=== PATIENT | female | born 1940 | race Caucasian/White ===

== ENCOUNTER 2017-04-11 15:09 | Inpatient (IN) | payer MEDICARE, BC ==
[2017-04-11] MEDS ORDERED: methylPREDNISolone SOD SUCCI 125 MG/2 ML VIAL IV STA (15:32)
[2017-04-11] MEDS ORDERED: IPRATROPIUM 0.5 MG/2.5 ML NEBU INHALATION STA (15:32)
[2017-04-11] MEDS ORDERED: ALBUTEROL NEBULIZED 2.5 MG/3 ML INHALATION STA (15:32)
--- NOTE | 2017-04-11 15:35 | ED ---
General Adult HPI - General Source: patient, RN notes reviewed Mode of arrival: wheelchair Limitations: no limitations <Noel Fabian - Last Filed: 04/11/17 16:42> <Gale Edmondson - Last Filed: 04/11/17 19:44> - General Chief complaint: Shortness of Breath Stated complaint: Diff Breathing Time Seen by Provider: 04/11/17 15:15 - History of Present Illness Initial comments: This is a 76-year-old female presents to the emergency department with past history of a heart attack and continues to smoke. Patient comes in today complaining that she's having difficulty breathing since this morning is getting progressively worse. Patient states she has a low-grade fever and has been coughing quite a bit. Patient states it is positive sputum production as well. Patient denies any palpitations. Patient denies any sore throat or ear pain. Patient denies headache patient denies numbness weakness. Patient denies lightheadedness dizziness or near syncopal episode. Patient denies abdominal pain patient denies any nausea vomiting diarrhea. Patient denies any erythema on the skin rashes or lesions. Patient denies any dysuria hematuria urinary frequency. (Noel Fabian) - Related Data Home Medications Medication Instructions Recorded Confirmed Aspirin [Adult Low Dose Aspirin EC] 81 mg PO DAILY 04/11/17 04/11/17 Calcium Carbonate 500 mg PO DAILY 04/11/17 04/11/17 Cholecalciferol [Vitamin D3] 800 unit PO DAILY 04/11/17 04/11/17 Citalopram Hydrobromide [CeleXA] 20 mg PO DAILY 04/11/17 04/11/17 Clopidogrel Bisulfate [Plavix] 75 mg PO DAILY 04/11/17 04/11/17 Furosemide [Lasix] 40 mg PO DAILY 04/11/17 04/11/17 HYDROcodone/APAP 5-325MG [[place] 1 tab PO DAILY PRN 04/11/17 04/11/17 5-325] Ibuprofen [Motrin] 800 mg PO DAILY PRN 04/11/17 04/11/17 Metoprolol Tartrate [Lopressor] 25 mg PO BID 04/11/17 04/11/17 Multivitamins, Thera [Multivitamin 1 tab PO DAILY 04/11/17 04/11/17 (formulary)] Omeprazole [PriLOSEC] 20 mg PO BID 04/11/17 04/11/17 Potassium Chloride [Klor-Con 10] 10 meq PO DAILY 04/11/17 04/11/17 Ranitidine HCl [Zantac] 150 mg PO DAILY 04/11/17 04/11/17 Rosuvastatin [Crestor] 10 mg PO DAILY 04/11/17 04/11/17 Allergies Allergy/AdvReac Type Severity Reaction Status Date / Time No Known Allergies Allergy Verified 04/11/17 16:08 Review of Systems ROS Other: All systems not noted in ROS Statement are negative. <Noel Fabian - Last Filed: 04/11/17 16:42> ROS Other: All systems not noted in ROS Statement are negative. <Gale Edmondson - Last Filed: 04/11/17 19:44> ROS Statement: Those systems with pertinent positive or pertinent negative responses have been documented in the HPI. Past Medical History Past Medical History: Cancer, Myocardial Infarction ([place]) Additional Past Medical History / Comment(s): mi october 2012 History of Any Multi-Drug Resistant Organisms: None Reported Past Surgical History: Breast Surgery, Joint Replacement Additional Past Surgical History / Comment(s): kim knee replacement hip replacement Past Psychological History: No Psychological Hx Reported Smoking Status: Current every day smoker Past Alcohol Use History: None Reported Past Drug Use History: None Reported <Noel Fabian - Last Filed: 04/11/17 16:42> General Exam Limitations: no limitations <Noel Fabian - Last Filed: 04/11/17 16:42> <Gale Edmondson - Last Filed: 04/11/17 19:44> - General Exam Comments Initial Comments: GENERAL: Patient is well-developed and well-nourished. Patient is nontoxic and well- hydrated and is in mild distress. ENT: Neck is soft and supple. No significant lymphadenopathy is noted. Oropharynx is clear. Moist mucous membranes. Neck has full range of motion without eliciting any pain. EYES: The sclera were anicteric and conjunctiva were pink and moist. Extraocular movements were intact and pupils were equal round and reactive to light. Eyelids were unremarkable. PULMONARY: Patient has diffuse wheezing diminished breath sounds CARDIOVASCULAR: There is a regular rate and rhythm without any murmurs gallops or rubs. ABDOMEN: Soft and nontender with normal bowel sounds. No palpable organomegaly was noted. There is no palpable pulsatile mass. SKIN: Skin is clear with no lesions or rashes and otherwise unremarkable. NEUROLOGIC: Patient is alert and oriented x3. Cranial nerves II through XII are grossly intact. Motor and sensory are also intact. Normal speech, volume and content. Symmetrical smile. MUSCULOSKELETAL: Normal extremities with adequate strength and full range of motion. LYMPHATICS: No significant lymphadenopathy is noted PSYCHIATRIC: Normal psychiatric evaluation. (Noel Fabian) Course <Noel Fabian - Last Filed: 04/11/17 16:42> <Gale Edmondson - Last Filed: 04/11/17 19:44> Vital Signs 04/11/17 04/11/17 04/11/17 15:16 15:45 16:06 Temperature 100.3 F H Pulse Rate 107 H 96 82 Respiratory 18 Rate Blood Pressure 155/74 O2 Sat by Pulse 91 L Oximetry 04/11/17 04/11/17 04/11/17 16:34 17:15 18:55 Temperature 100.8 F H Pulse Rate 91 88 Respiratory 16 16 Rate Blood Pressure 141/65 146/58 O2 Sat by Pulse 91 L 94 L Oximetry 04/11/17 19:23 Temperature Pulse Rate 85 Respiratory 18 Rate Blood Pressure 153/75 O2 Sat by Pulse 94 L Oximetry - Reevaluation(s) Reevaluation #1: 04/11/17 19:43 Labs and imaging were reviewed his CBC is unremarkable d-dimer is quite elevated troponin is unremarkable, compressive metabolic panel and urinalysis are negative CT chest to rule out any PE or confirmed congestive heart failure considering patient's coronary artery disease she be admitted to the hospital she will get Lasix 40 mg IV now and will consult cardiology (Gale Edmondson) Medical Decision Making - Lab Data Result diagrams: 04/11/17 15:20 04/11/17 15:20 <Noel Fabian - Last Filed: 04/11/17 16:42> - Lab Data Result diagrams: 04/11/17 15:20 04/11/17 15:20 <Gale Edmondson - Last Filed: 04/11/17 19:44> - Medical Decision Making EKG shows normal sinus rhythm at 83 bpm NM interval 298 QRSs 100 QT interval 370 QTC is 444. Patient's EKG shows no ST segment elevation or depression or T wave abnormalities are noted Dr. Edmondson will be taking over the care of this patient at 5 PM (Noel Fabian) - Lab Data Lab Results 04/11/17 04/11/17 04/11/17 Range/Units 15:20 15:20 15:20 WBC 5.5 (3.8-10.6) k/uL RBC 4.34 (3.80-5.40) m/uL Hgb 13.5 (11.4-16.0) gm/dL Hct 41.9 (34.0-46.0) % MCV 96.7 (80.0-100.0) fL MCH 31.1 (25.0-35.0) pg MCHC 32.1 (31.0-37.0) g/dL RDW 13.5 (11.5-15.5) % Plt Count 153 (150-450) k/uL Neutrophils % 75 % Lymphocytes % 14 % Monocytes % 6 % Eosinophils % 3 % Basophils % 1 % Neutrophils # 4.2 (1.3-7.7) k/uL Lymphocytes # 0.8 L (1.0-4.8) k/uL Monocytes # 0.3 (0-1.0) k/uL Eosinophils # 0.2 (0-0.7) k/uL Basophils # 0.1 (0-0.2) k/uL PT (9.0-12.0) sec INR (<1.2) APTT (22.0-30.0) sec D-Dimer (<0.60) mg/L FEU Sodium 139 (137-145) mmol/L Potassium 4.1 (3.5-5.1) mmol/L Chloride 106 (98-107) mmol/L Carbon Dioxide 21 L (22-30) mmol/L Anion Gap 12 mmol/L BUN 17 (7-17) mg/dL Creatinine 0.80 (0.52-1.04) mg/dL Est GFR (MDRD) Af Amer >60 (>60 ml/min/1.73 sqM) Est GFR (MDRD) Non-Af >60 (>60 ml/min/1.73 sqM) Glucose 179 H (74-99) mg/dL Plasma Lactic Acid Ernie (0.7-2.0) mmol/L Calcium 9.0 (8.4-10.2) mg/dL Magnesium 1.9 (1.6-2.3) mg/dL Total Bilirubin 0.4 (0.2-1.3) mg/dL AST 30 (14-36) U/L ALT 40 (9-52) U/L Alkaline Phosphatase 106 (38-126) U/L Total Creatine Kinase 85 (30-135) U/L CK-MB (CK-2) 1.5 (0.0-2.4) ng/mL CK-MB (CK-2) Rel Index 1.8 Troponin I <0.012 (0.000-0.034) ng/mL NT-Pro-B Natriuret Pep pg/mL Total Protein 7.1 (6.3-8.2) g/dL Albumin 4.0 (3.5-5.0) g/dL Urine Color Urine Appearance (Clear) Urine pH (5.0-8.0) Ur Specific [place] (1.001-1.035) Urine Protein (Negative) Urine Glucose (UA) (Negative) Urine Ketones (Negative) Urine Blood (Negative) Urine Nitrite (Negative) Urine Bilirubin (Negative) Urine Urobilinogen (<2.0) mg/dL Ur Leukocyte Esterase (Negative) 04/11/17 04/11/17 04/11/17 Range/Units 15:20 15:20 15:20 WBC (3.8-10.6) k/uL RBC (3.80-5.40) m/uL Hgb (11.4-16.0) gm/dL Hct (34.0-46.0) % MCV (80.0-100.0) fL MCH (25.0-35.0) pg MCHC (31.0-37.0) g/dL RDW (11.5-15.5) % Plt Count (150-450) k/uL Neutrophils % % Lymphocytes % % Monocytes % % Eosinophils % % Basophils % % Neutrophils # (1.3-7.7) k/uL Lymphocytes # (1.0-4.8) k/uL Monocytes # (0-1.0) k/uL Eosinophils # (0-0.7) k/uL Basophils # (0-0.2) k/uL PT 10.5 (9.0-12.0) sec INR 1.0 (<1.2) APTT 22.4 (22.0-30.0) sec D-Dimer 0.66 H (<0.60) mg/L FEU Sodium (137-145) mmol/L Potassium (3.5-5.1) mmol/L Chloride (98-107) mmol/L Carbon Dioxide (22-30) mmol/L Anion Gap mmol/L BUN (7-17) mg/dL Creatinine (0.52-1.04) mg/dL Est GFR (MDRD) Af Amer (>60 ml/min/1.73 sqM) Est GFR (MDRD) Non-Af (>60 ml/min/1.73 sqM) Glucose (74-99) mg/dL Plasma Lactic Acid Ernie 1.5 (0.7-2.0) mmol/L Calcium (8.4-10.2) mg/dL Magnesium (1.6-2.3) mg/dL Total Bilirubin (0.2-1.3) mg/dL AST (14-36) U/L ALT (9-52) U/L Alkaline Phosphatase (38-126) U/L Total Creatine Kinase (30-135) U/L CK-MB (CK-2) (0.0-2.4) ng/mL CK-MB (CK-2) Rel Index Troponin I (0.000-0.034) ng/mL NT-Pro-B Natriuret Pep 3200 pg/mL Total Protein (6.3-8.2) g/dL Albumin (3.5-5.0) g/dL Urine Color Urine Appearance (Clear) Urine pH (5.0-8.0) Ur Specific [place] (1.001-1.035) Urine Protein (Negative) Urine Glucose (UA) (Negative) Urine Ketones (Negative) Urine Blood (Negative) Urine Nitrite (Negative) Urine Bilirubin (Negative) Urine Urobilinogen (<2.0) mg/dL Ur Leukocyte Esterase (Negative) 04/11/17 Range/Units 18:00 WBC (3.8-10.6) k/uL RBC (3.80-5.40) m/uL Hgb (11.4-16.0) gm/dL Hct (34.0-46.0) % MCV (80.0-100.0) fL MCH (25.0-35.0) pg MCHC (31.0-37.0) g/dL RDW (11.5-15.5) % Plt Count (150-450) k/uL Neutrophils % % Lymphocytes % % Monocytes % % Eosinophils % % Basophils % % Neutrophils # (1.3-7.7) k/uL Lymphocytes # (1.0-4.8) k/uL Monocytes # (0-1.0) k/uL Eosinophils # (0-0.7) k/uL Basophils # (0-0.2) k/uL PT (9.0-12.0) sec INR (<1.2) APTT (22.0-30.0) sec D-Dimer (<0.60) mg/L FEU Sodium (137-145) mmol/L Potassium (3.5-5.1) mmol/L Chloride (98-107) mmol/L Carbon Dioxide (22-30) mmol/L Anion Gap mmol/L BUN (7-17) mg/dL Creatinine (0.52-1.04) mg/dL Est GFR (MDRD) Af Amer (>60 ml/min/1.73 sqM) Est GFR (MDRD) Non-Af (>60 ml/min/1.73 sqM) Glucose (74-99) mg/dL Plasma Lactic Acid Ernie (0.7-2.0) mmol/L Calcium (8.4-10.2) mg/dL Magnesium (1.6-2.3) mg/dL Total Bilirubin (0.2-1.3) mg/dL AST (14-36) U/L ALT (9-52) U/L Alkaline Phosphatase (38-126) U/L Total Creatine Kinase (30-135) U/L CK-MB (CK-2) (0.0-2.4) ng/mL CK-MB (CK-2) Rel Index Troponin I (0.000-0.034) ng/mL NT-Pro-B Natriuret Pep pg/mL Total Protein (6.3-8.2) g/dL Albumin (3.5-5.0) g/dL Urine Color Light Yellow Urine Appearance Clear (Clear) Urine pH 5.0 (5.0-8.0) Ur Specific [place] 1.008 (1.001-1.035) Urine Protein Trace H (Negative) Urine Glucose (UA) Negative (Negative) Urine Ketones Negative (Negative) Urine Blood Negative (Negative) Urine Nitrite Negative (Negative) Urine Bilirubin Negative (Negative) Urine Urobilinogen <2.0 (<2.0) mg/dL Ur Leukocyte Esterase Negative (Negative) Disposition <Noel Fabian - Last Filed: 04/11/17 16:42> <Gale Edmondson - Last Filed: 04/11/17 19:44> Clinical Impression: Congestive heart failure Disposition: ADMITTED IP TO THIS HOSP Condition: Good Referrals: Ramírez Galeas MD [Primary Care Provider] - 1-2 days
[2017-04-11] MEDS ORDERED: ACETAMINOPHEN TAB 500 MG TAB PO STA (15:36)
[2017-04-11] MEDS ORDERED: IBUPROFEN 600 MG TAB PO STA (15:36)
[2017-04-11 15:48] LABS: Basophils # (A) 0.1 k/uL (0-0.2); Basophils % (A) 1 %; CHCM 32.3; Eosinophils # (A) 0.2 k/uL (0-0.7); Eosinophils % (A) 3 %; HCT 41.9 % (34.0-46.0); HDW 2.44; HGB 13.5 gm/dL (11.4-16.0); Luc # (Auto) 0.11; Luc % (Auto) 2; Lymphocytes # (A) 0.8 k/uL (1.0-4.8); Lymphocytes % (A) 14 %; MCH 31.1 pg (25.0-35.0); MCHC 32.1 g/dL (31.0-37.0); MCV 96.7 fL (80.0-100.0); Mean Platelet Volume 9.7; Monocytes # (A) 0.3 k/uL (0-1.0); Monocytes % (A) 6 %; Neutrophils # (A) 4.2 k/uL (1.3-7.7); Neutrophils % (A) 75 %; RBC 4.34 m/uL (3.80-5.40); RDW 13.5 % (11.5-15.5); WBC 5.5 k/uL (3.8-10.6); WBC (Perox) 5.98
[2017-04-11 16:02] LABS: ALT 40 U/L (9-52); AST 30 U/L (14-36); Alkaline Phosphatase 106 U/L (38-126); Anion Gap 12 mmol/L; Blood Urea Nitrogen 17 mg/dL (7-17); Carbon Dioxide 21 mmol/L (22-30); Chloride 106 mmol/L (98-107); Glucose 179 mg/dL (74-99); Magnesium 1.9 mg/dL (1.6-2.3); Non-African American GFR(MDRD) >60 (>60 ml/min/1.73 sqM); Potassium 4.1 mmol/L (3.5-5.1); Sodium 139 mmol/L (137-145); Total Bilirubin 0.4 mg/dL (0.2-1.3); Total Protein 7.1 g/dL (6.3-8.2)
[2017-04-11 16:03] LABS: Partial Thromboplastin Time 22.4 sec (22.0-30.0)
[2017-04-11 16:06] LABS: Prothrombin Time 10.5 sec (9.0-12.0)
[2017-04-11 16:13] LABS: Creatine Kinase 85 U/L (30-135)
[2017-04-11 16:26] LABS: Creatine Kinase MB 1.5 ng/mL (0.0-2.4); Troponin I <0.012 ng/mL (0.000-0.034)
[2017-04-11] MEDS ORDERED: RX INFO: IV CONTRAST WAS GIVEN 1 EACH MISC MISCELLANE PRN (16:42)
[2017-04-11 18:13] LABS: Appearance,Urine Clear (Clear); Bilirubin,Urine Negative (Negative); Glucose,Urine (UA) Negative (Negative); Ketones,Urine Negative (Negative); Leukocyte Esterase,Urine Negative (Negative); Nitrite,Urine Negative (Negative); Protein,Urine Trace (Negative); Specific Gravity,Urine 1.008 (1.001-1.035); UA Billing (MACRO vs. MICRO) CHEM; Urobilinogen,Urine <2.0 mg/dL (<2.0)
--- NOTE | 2017-04-11 19:26 | CT ---
EXAMINATION TYPE: CT chest angio for PE DATE OF EXAM: 04/11/2017 COMPARISON: NONE HISTORY: Patient complains of difficulty breathing. CT DLP: 552 mGycm. Automated Exposure Control for Dose Reduction was Utilized. CONTRAST: CTA scan of the thorax is performed with IV Contrast, patient injected with 100 mL of Omnipaque 350, pulmonary embolism protocol. MIP Images are created on CT scanner and reviewed. FINDINGS: LUNGS: The lungs are grossly clear, there is no concerning parenchymal mass or nodule identified. M inimal left basilar subsegmental atelectasis is seen. There is mild pulmonary vascular prominence. Ma in pulmonary artery and aorta are not enlarged. There is no pleural effusion or pneumothorax seen. T he tracheobronchial tree is patent. 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 Multiple enlarged m ediastinal lymph nodes measure up to 1.3 cm in the pretracheal space. Three-vessel moderate coronary artery calcifications are identified. There is satisfactory enhancement of the pulmonary artery and i ts branches, there is no CT evidence for pulmonary embolism. There are no greater than 1 cm hilar or mediastinal lymph nodes. No cardiomegaly or pericardial effusion is seen. OTHER: Right breast implant is noted. No discrete axillary adenopathy. Heart is mildly enlarged. Mode rate degenerative changes of the thoracic spine are noted.. IMPRESSION: 1. No evidence of acute pulmonary embolus. 2. Mild pulmonary vascular congestion and cardiac enlargement which may relate to mild underlying dec ompensated congestive heart failure. 3. No focal opacity although minimal bibasilar subsegmental atelectasis is noted. 3. Few mildly enlarged mediastinal lymph nodes that may be reactive.
[2017-04-11] MEDS ORDERED: FUROSEMIDE 10 MG/ML 4 ML VIAL IV STA (19:39)
[2017-04-11] MEDS ORDERED: NITROGLYCERIN SL TABS 0.4 MG TAB SUBLINGUAL PRN (19:44)
[2017-04-11] MEDS ORDERED: IBUPROFEN 800 MG TAB PO PRN (19:47)
[2017-04-11 21:53] LABS: Creatine Kinase 83 U/L (30-135)
[2017-04-11 22:06] LABS: Creatine Kinase MB 1.6 ng/mL (0.0-2.4); Troponin I <0.012 ng/mL (0.000-0.034)
[2017-04-11] MEDS: METOPROLOL TARTRATE 25 MG TAB PO SCH (22:59)
[2017-04-11] MEDS: PANTOPRAZOLE 40 MG TABLET PO SCH (22:59)
[2017-04-11 23:18] VITALS: BMI 31.4
[2017-04-12 03:59] LABS: Cholesterol 149 mg/dL (<200); HDL Cholesterol 59 mg/dL (40-60)
[2017-04-12 04:08] LABS: Creatine Kinase 74 U/L (30-135)
[2017-04-12 04:21] LABS: Creatine Kinase MB 1.6 ng/mL (0.0-2.4); Troponin I <0.012 ng/mL (0.000-0.034)
[2017-04-12] MEDS: PANTOPRAZOLE 40 MG TABLET PO SCH (09:00)
[2017-04-12] MEDS: ASPIRIN 81 MG PO SCH (09:00)
[2017-04-12] MEDS: CITALOPRAM HYDROBROMIDE 20 MG TAB PO SCH (09:02)
[2017-04-12] MEDS: CALCIUM CARBONATE 500 MG CHEWABLE PO SCH (09:02)
[2017-04-12] MEDS: ATORVASTATIN 20 MG TAB PO SCH (09:02)
[2017-04-12] MEDS: FAMOTIDINE 20 MG TAB PO SCH (09:03)
[2017-04-12] MEDS: METOPROLOL TARTRATE 25 MG TAB PO SCH ×2 (09:03→21:23)
[2017-04-12] MEDS: FUROSEMIDE 40 MG TAB PO SCH (09:03)
[2017-04-12] MEDS: POTASSIUM CHLORIDE ER 10 MEQ TAB.ER.PRT PO SCH (09:03)
[2017-04-12] MEDS: MULTIVITAMINS, THERA 1 EACH TAB PO SCH (09:04)
[2017-04-12] MEDS: CHOLECALCIFEROL 400 UNIT TAB PO SCH (09:04)
[2017-04-12] MEDS: CLOPIDOGREL 75 MG TAB PO SCH (10:04)
--- NOTE | 2017-04-12 10:56 | XR ---
EXAMINATION TYPE: XR chest 1V portable DATE OF EXAM: 04/12/2017 COMPARISON: NONE HISTORY: Shortness of breath TECHNIQUE: Single frontal view of the chest is obtained. FINDINGS: Heart size is prominent. There is ectasia of the aorta hypertrophic and degenerative [place] es spine. Arthropathy shoulders. No sizable pleural effusion or consolidation. Density overlying the anterior margin first rib may be related to first rib. Recent CT scan suggests no evidence of nodule. IMPRESSION: 1. No acute process.
--- NOTE | 2017-04-12 11:22 | P.CRDCN ---
History of Present Illness Consult date: 04/12/17 History of present illness: This is a 76-year-old female. 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 Her current cardiac medications include plavix 75 mg daily, crestor 10 mg daily, lopressor 25 mg BID, aspirin 81 mg daily, lasix 40 mg daily and potassium 10 MEQ daily. She presented to the hospital with increasing shortness of breath, cough and fever. We have been asked to see this patient in consultation to evaluate for heart failure. At the time of my exam she denies chest pain, dizziness, palpitations, orthopnea, pedal edema or nausea/vomiting. She last saw her director operating room last week and states there were no changes made and she isn't scheduled to go back for another year. EKG reveals sinus mechanism with nonspecific T-wave abnormalities. D-dimer 0.66, troponin negative x3, pro-BNP 3200, BUN 17, Cr 0.8, CTA negative for PE with pulmonary vascular congestion and cardiac enlargement. Chest x-ray negative. Blood pressure 146/66 with a heart rate of 68. She is currently saturating 90% on room air, 2 L nasal cannula have been applied. Review of Systems Extensive review of systems performed, negative except mentioned in HPI. Past Medical History Past Medical History: Cancer, Myocardial Infarction ([place]) Additional Past Medical History / Comment(s): mi october 2012 Last Myocardial Infarction Date:: 2012 History of Any Multi-Drug Resistant Organisms: None Reported Past Surgical History: Breast Surgery, Joint Replacement Additional Past Surgical History / Comment(s): kim knee replacement right hip replacement Heart cath with 2 stents. Past Anesthesia/Blood Transfusion Reactions: No Reported Reaction Past Psychological History: No Psychological Hx Reported Smoking Status: Current every day smoker Past Alcohol Use History: None Reported Past Drug Use History: None Reported - Past Family History Mother Additional Family Medical History / Comment(s): from natural causes per patient. Father Family Medical History: Cancer Medications and Allergies Home Medications Medication Instructions Recorded Confirmed Type Aspirin [Adult Low Dose Aspirin EC] 81 mg PO DAILY 04/11/17 04/11/17 History Calcium Carbonate 500 mg PO DAILY 04/11/17 04/11/17 History Cholecalciferol [Vitamin D3] 800 unit PO DAILY 04/11/17 04/11/17 History Citalopram Hydrobromide [CeleXA] 20 mg PO DAILY 04/11/17 04/11/17 History Clopidogrel Bisulfate [Plavix] 75 mg PO DAILY 04/11/17 04/11/17 History Furosemide [Lasix] 40 mg PO DAILY 04/11/17 04/11/17 History HYDROcodone/APAP 5-325MG [[place] 1 tab PO DAILY PRN 04/11/17 04/11/17 History 5-325] Ibuprofen [Motrin] 800 mg PO DAILY PRN 04/11/17 04/11/17 History Metoprolol Tartrate [Lopressor] 25 mg PO BID 04/11/17 04/11/17 History Multivitamins, Thera [Multivitamin 1 tab PO DAILY 04/11/17 04/11/17 History (formulary)] Omeprazole [PriLOSEC] 20 mg PO BID 04/11/17 04/11/17 History Potassium Chloride [Klor-Con 10] 10 meq PO DAILY 04/11/17 04/11/17 History Ranitidine HCl [Zantac] 150 mg PO DAILY 04/11/17 04/11/17 History Rosuvastatin [Crestor] 10 mg PO DAILY 04/11/17 04/11/17 History Allergies Allergy/AdvReac Type Severity Reaction Status Date / Time No Known Allergies Allergy Verified 04/11/17 16:08 Physical Exam Vitals: Vital Signs Temp Pulse Pulse Resp BP BP Pulse Ox 04/12/17 07:00 98.0 F 68 16 146/66 90 L 04/12/17 00:00 76 16 04/11/17 23:20 76 16 04/11/17 23:16 98.2 F 76 16 147/74 94 L 04/11/17 20:58 98.3 F 85 17 165/77 95 04/11/17 20:20 97.8 F 85 20 181/80 93 L 04/11/17 19:59 74 18 163/77 94 L 04/11/17 19:23 85 18 153/75 94 L 04/11/17 18:55 100.8 F H 88 16 146/58 94 L 04/11/17 17:15 16 141/65 91 L 04/11/17 16:34 91 04/11/17 16:06 82 10/01/17 15:45 96 04/11/17 15:16 100.3 F H 107 H 18 155/74 91 L Intake and Output 04/11/17 04/12/17 04/12/17 22:59 06:59 14:59 Intake Total 540 Balance 540 Intake: Oral 540 Other: Voiding Method Toilet # Voids 2 Weight 85.729 kg 85.729 kg GENERAL: This is a 76-year-old female in no apparent distress at the time of my examination. HEENT: Head is atraumatic, normocephalic. Pupils are equal, round. Sclerae anicteric. Conjunctivae are clear. Mucous membranes of the mouth are moist. Neck is supple. There is no jugular venous distention. No carotid bruit is heard. LUNGS: Wheezing on inspiration and expiration with poor air entry b/l throughout. Course lung sounds throughout. No crackles appreciated. No chest wall tenderness is noted on palpation or with deep breathing. HEART: Regular rate and rhythm without murmurs, rubs or gallops. S1 and S2 heard. ABDOMEN: Soft, nontender. Bowel sounds are heard. No organomegaly noted. EXTREMITIES: 2+ peripheral pulses with no evidence of peripheral edema and no calf tenderness noted. NEUROLOGIC: Patient is awake, alert and oriented x3. Results 04/13/17 07:35 04/13/17 07:35 Cardiac Enzymes 04/11/17 04/11/17 04/11/17 Range/Units 15:20 15:20 21:19 AST 30 (14-36) U/L CK-MB (CK-2) 1.5 1.6 (0.0-2.4) ng/mL Troponin I <0.012 <0.012 (0.000-0.034) ng/mL 04/12/17 Range/Units 03:16 AST (14-36) U/L CK-MB (CK-2) 1.6 (0.0-2.4) ng/mL Troponin I <0.012 (0.000-0.034) ng/mL Coagulation 04/11/17 Range/Units 15:20 PT 10.5 (9.0-12.0) sec APTT 22.4 (22.0-30.0) sec Lipids 04/12/17 Range/Units 03:16 Triglycerides 44 (<150) mg/dL Cholesterol 149 (<200) mg/dL HDL Cholesterol 59 (40-60) mg/dL CBC 04/11/17 Range/Units 15:20 WBC 5.5 (3.8-10.6) k/uL RBC 4.34 (3.80-5.40) m/uL Hgb 13.5 (11.4-16.0) gm/dL Hct 41.9 (34.0-46.0) % Plt Count 153 (150-450) k/uL Comprehensive Metabolic Panel 04/11/17 Range/Units 15:20 Sodium 139 (137-145) mmol/L Potassium 4.1 (3.5-5.1) mmol/L Chloride 106 (98-107) mmol/L Carbon Dioxide 21 L (22-30) mmol/L BUN 17 (7-17) mg/dL Creatinine 0.80 (0.52-1.04) mg/dL Glucose 179 H (74-99) mg/dL Calcium 9.0 (8.4-10.2) mg/dL AST 30 (14-36) U/L ALT 40 (9-52) U/L Alkaline Phosphatase 106 (38-126) U/L Total Protein 7.1 (6.3-8.2) g/dL Albumin 4.0 (3.5-5.0) g/dL Current Medications Generic Name Dose Route Start Last Admin Trade Name Freq PRN Reason Stop Dose Admin Hydrocodone Bitart/Acetaminophen 1 each 04/11/17 19:47 [place] 5-325 PO DAILY PRN Moderate Pain Aspirin 81 mg 04/12/17 09:00 04/12/17 09:00 Aspirin PO 81 mg DAILY RODRIGUEZ Administration Atorvastatin Calcium 20 mg 04/12/17 09:00 04/12/17 09:02 Lipitor PO 20 mg DAILY RODRIGUEZ Administration Calcium Carbonate/Glycine 500 mg 04/12/17 09:00 04/12/17 09:02 Tums PO 500 mg DAILY RODRIGUEZ Administration Cholecalciferol 800 unit 04/12/17 12:00 04/12/17 09:04 Vitamin D3 PO 800 unit DAILY@1200 RODRIGUEZ Administration Citalopram Hydrobromide 20 mg 04/12/17 09:00 04/12/17 09:02 Celexa PO 20 mg DAILY RODRIGUEZ Administration Clopidogrel Bisulfate 75 mg 04/12/17 09:00 04/12/17 10:04 Plavix PO 75 mg DAILY RODRIGUEZ Administration Famotidine 20 mg 04/12/17 09:00 04/12/17 09:03 Pepcid PO 20 mg DAILY RODRIGUEZ Administration Furosemide 40 mg 04/12/17 09:00 04/12/17 09:03 Lasix PO 40 mg DAILY RODRIGUEZ Administration Guaifenesin 600 mg 04/12/17 10:45 Mucinex PO Q12HR RODRIGUEZ Ibuprofen 800 mg 04/11/17 19:47 Motrin PO DAILY PRN Mild Pain Metoprolol Tartrate 25 mg 04/11/17 21:00 04/12/17 09:03 Lopressor PO 25 mg BID RODRIGUEZ Administration Miscellaneous Information 1 each 04/11/17 16:42 04/11/17 19:25 Rx Info: Iv Contrast Was Given MISCELLANE 04/13/17 16:42 1 each DAILY PRN Administration Per Protocol Multivitamins 1 each 04/12/17 12:00 04/12/17 09:04 Theragran PO 1 each DAILY@1200 RODRIGUEZ Administration Nitroglycerin 0.4 mg 04/11/17 19:44 Nitrostat SUBLINGUAL Q5M PRN Chest Pain Pantoprazole Sodium 40 mg 04/11/17 20:15 04/12/17 09:00 Protonix PO 40 mg [id number] RODRIGUEZ Administration Potassium Chloride 10 meq 04/12/17 09:00 04/12/17 09:03 K-Dur 10 PO 10 meq DAILY RODRIGUEZ Administration Intake and Output 04/11/17 04/12/17 04/12/17 22:59 06:59 14:59 Intake Total 540 Balance 540 Intake: Oral 540 Other: Voiding Method Toilet # Voids 2 Weight 85.729 kg 85.729 kg 04/11/17 15:20 04/11/17 15:20 Assessment and Plan Plan: ASSESSMENT 1. CAD with previous stenting 2. Essential hypertension, controlled 3. Dyslipidemia 4. COPD, acute on chronic exacerbation 5. Chronic tobacco abuse PLAN Mrs Leavitt received one dose of IV lasix in ED and is currently maintained on 40 mg PO. This should be continued as ordered. We will obtain 2D echo and doppler study to assess LV structure and function. Consider pulmonary consultation for acute exacerbation of COPD. Nurse Practitioner note has been reviewed, I agree with a documented findings and plan of care. Patient was seen and examined.
[2017-04-12] MEDS: guaiFENesin 600 MG TABLET.ER PO SCH ×2 (11:54→21:23)
[2017-04-12] MEDS ORDERED: TEMAZEPAM 15 MG CAP PO PRN (18:06)
[2017-04-12] MEDS ORDERED: ALPRAZolam 0.25 MG TAB PO PRN (18:06)
[2017-04-12] MEDS: HYDROcodone/APAP 5-325MG 1 EACH TAB PO PRN (18:42)
[2017-04-12] MEDS: NICOTINE 14MG/24HR PATCH TRANSDERM SCH (18:43)
[2017-04-12] MEDS: IPRATROPIUM-ALBUTEROL 3 ML NEB INHALATION SCH ×2 (19:26→19:28)
[2017-04-12] MEDS: BUDESONIDE 1 MG/2 ML NEBU INHALATION SCH (19:28)
[2017-04-12] MEDS: FORMOTEROL FUMARATE 20 MCG/2 ML NEBU INHALATION SCH (19:28)
[2017-04-12] MEDS: HEPARIN SODIUM,PORCINE 5,000 UNIT/ML 1 ML VIAL SQ SCH (21:23)
--- NOTE | 2017-04-12 21:23 | HP ---
HISTORY AND PHYSICAL DATE OF SERVICE: 04/12/2017 CHIEF COMPLAINT: Shortness of breath. HISTORY OF PRESENT ILLNESS: This 76-year-old woman with a past medical history of multiple medical problems, including history of myocardial infarction, history of DJD, history of nicotine dependence, being followed by Dr. Galeas in the outpatient setting, was complaining of shortness of breath. The shortness of breath is not related to exertion. Patient has fever and cough, also. A chest CT was done on admission which showed no evidence of pulmonary embolism, but vascular congestion and decompensated heart failure and mildly enlarged mediastinal lymph nodes also noted. Chest x-ray baseline was done which showed no acute process. There is no history of any fever, rigor or chills. No history of headache, loss of consciousness, seizures. PAST MEDICAL HISTORY: 1. History of myocardial infarction. 2. History of malignancy. 3. History of breast surgery. 4. History of joint replacement. MEDICATIONS: Medications prior to admission include: 1. Crestor 10 mg p.o. daily. 2. Motrin 800 mg daily p.r.n. 3. Lopressor 25 mg b.i.d. 4. Waldron 1 tablet b.i.d. p.r.n. 5. Aspirin 81 mg. 6. Prilosec 20 mg b.i.d. 7. Multivitamins 1 p.o. daily. 8. Calcium carbonate 500 mg p.o. daily. 9. Zantac 150 mg p.o. daily. 10.Klor-Con 10 mEq p.o. daily. 11.Vitamin D3 800 units p.o. daily. 12.Lasix 40 mg p.o. daily. 13.Plavix 75 mg p.o. daily. 14.Celexa 20 mg p.o. daily. ALLERGIES: NONE. FAMILY HISTORY: History of cancer in the family. SOCIAL HISTORY: Continue ongoing nicotine dependence. No history of alcohol intake. REVIEW OF SYSTEMS: ENT: No diminished hearing. No diminished vision. CARDIOVASCULAR SYSTEM: As mentioned earlier. RESPIRATORY SYSTEM: As mentioned earlier. GI: No nausea, vomiting. : No dysuria or retention. NERVOUS SYSTEM: No numbness, weakness. ALLERGY/IMMUNOLOGY: No asthma, hayfever. MUSCULOSKELETAL: As mentioned earlier. HEMATOLOGY/ONCOLOGY: No history of anemia. ENDOCRINE: As mentioned earlier. CONSTITUTIONAL: As mentioned earlier. DERMATOLOGY: Negative. RHEUMATOLOGY: Negative. PSYCHIATRY: As mentioned earlier. PHYSICAL EXAMINATION: Alert and oriented x3. The pulse is 68, blood pressure 146/66, respiration 16, temperature 98 degrees, pulse ox 98% on 2 L. HEENT: Conjunctivae normal. Oral mucosa moist. NECK: No jugular venous distention. No carotid bruit. No lymph node enlargement. CARDIOVASCULAR SYSTEM: S1, S2 muffled. No S3. No S4. RESPIRATORY SYSTEM: Breath sounds diminished at the bases. A few scattered rhonchi and crackles. Expiratory wheezing also present. Breathing efforts are markedly increased. ABDOMEN: Soft, nontender. No mass palpable. LEGS: No edema. No swelling. NERVOUS SYSTEM: No focal deficit.. LABS: CBC within normal limits. INR is 1. CO2 is 21. UA noted. Chest x-ray which was personally reviewed by me showed some increased bronchovascular markings as well as evidence of CHF. Other labs are noted. ASSESSMENT: 1. Shortness of breath; possible chronic obstructive pulmonary disease, acute exacerbation, with acute purulent tracheobronchitis. 2. History of myocardial infarction. 3. History of degenerative joint disease. 4. History of nicotine dependence, continued ongoing. RECOMMENDATION AND DISCUSSION: In this 76-year-old woman who presented with multiple complex medical issues, we will monitor the patient closely, continue the current medications, continue symptomatic treatment. I would recommend broad-spectrum IV antibiotics and optimize the bronchodilator treatment. Pulmonary consultation, cardiology consultation are appreciated. Guarded prognosis. Further recommendations to follow. MMMARIA DOLORESL / HENRYN: [id number] /
[2017-04-13] MEDS: BUDESONIDE 1 MG/2 ML NEBU INHALATION SCH ×2 (07:32→20:03)
[2017-04-13] MEDS: FORMOTEROL FUMARATE 20 MCG/2 ML NEBU INHALATION SCH ×2 (07:32→20:03)
[2017-04-13] MEDS: IPRATROPIUM-ALBUTEROL 3 ML NEB INHALATION SCH ×4 (07:33→20:03)
[2017-04-13 07:52] LABS: Basophils # (A) 0.1 k/uL (0-0.2); Basophils % (A) 1 %; CH 29.8; CHCM 31.4; Eosinophils # (A) 0.3 k/uL (0-0.7); Eosinophils % (A) 4 %; HCT 42.5 % (34.0-46.0); HDW 2.42; HGB 13.5 gm/dL (11.4-16.0); Luc # (Auto) 0.19; Luc % (Auto) 2; Lymphocytes # (A) 1.8 k/uL (1.0-4.8); Lymphocytes % (A) 22 %; MCH 30.3 pg (25.0-35.0); MCHC 31.8 g/dL (31.0-37.0); MCV 95.4 fL (80.0-100.0); Mean Platelet Volume 9.4; Monocytes # (A) 0.5 k/uL (0-1.0); Monocytes % (A) 6 %; Neutrophils # (A) 5.2 k/uL (1.3-7.7); Neutrophils % (A) 65 %; RBC 4.46 m/uL (3.80-5.40); RDW 12.8 % (11.5-15.5); WBC 7.9 k/uL (3.8-10.6); WBC (Perox) 8.32
[2017-04-13 08:17] LABS: Anion Gap 7 mmol/L; Blood Urea Nitrogen 27 mg/dL (7-17); Calcium 8.9 mg/dL (8.4-10.2); Carbon Dioxide 30 mmol/L (22-30); Chloride 104 mmol/L (98-107); Glucose 92 mg/dL (74-99); Non-African American GFR(MDRD) 52 (>60 ml/min/1.73 sqM); Potassium 4.2 mmol/L (3.5-5.1); Sodium 141 mmol/L (137-145)
[2017-04-13] MEDS: NICOTINE 14MG/24HR PATCH TRANSDERM SCH (08:30)
[2017-04-13] MEDS: CALCIUM CARBONATE 500 MG CHEWABLE PO SCH (08:31)
[2017-04-13] MEDS: POTASSIUM CHLORIDE ER 10 MEQ TAB.ER.PRT PO SCH (08:31)
[2017-04-13] MEDS: FUROSEMIDE 40 MG TAB PO SCH (08:31)
[2017-04-13] MEDS: METOPROLOL TARTRATE 25 MG TAB PO SCH ×2 (08:31→21:12)
[2017-04-13] MEDS: FAMOTIDINE 20 MG TAB PO SCH (08:32)
[2017-04-13] MEDS: CLOPIDOGREL 75 MG TAB PO SCH (08:32)
[2017-04-13] MEDS: CITALOPRAM HYDROBROMIDE 20 MG TAB PO SCH (08:32)
[2017-04-13] MEDS: ASPIRIN 81 MG PO SCH (08:32)
[2017-04-13] MEDS: ATORVASTATIN 20 MG TAB PO SCH (08:32)
[2017-04-13] MEDS: PANTOPRAZOLE 40 MG TABLET PO SCH (08:32)
[2017-04-13] MEDS: HEPARIN SODIUM,PORCINE 5,000 UNIT/ML 1 ML VIAL SQ SCH ×2 (08:33→21:12)
[2017-04-13] MEDS: guaiFENesin 600 MG TABLET.ER PO SCH ×2 (08:33→21:11)
--- NOTE | 2017-04-13 11:13 | P.CNPUL ---
History of Present Illness Consult date: 04/13/17 Requesting physician: Betty Miller Reason for consult: dyspnea Chief complaint: Shortness of breath, cough, congestion History of present illness: This is a very pleasant 76-year-old female patient who follows with Dr. Galeas as her primary care physician. She has a history of right breast cancer, myocardial infarction with previous stent placement in 2014, hyperlipidemia, degenerative joint disease with multiple orthopedic surgeries. She has has chronic and ongoing tobacco dependence of approximately 60 years. She has not been seen by a acrobatic dancer in the past. She is not on any rescue her maintenance inhalers in the outpatient setting. Not oxygen nor steroid dependent. She presented to the emergency room on 04/11/2017 with complaints of increasing shortness of breath, cough and congestion. She does have a productive cough of white sputum. She did have a T-max of 100.8. No leukocytosis. Chest x-ray showed no acute pulmonary process. A d-dimer was 0.[address] angiogram was performed which revealed no evidence of pulmonary embolism. There was some mild pulmonary vascular congestion with cardiac enlargement. Troponins were negative 3. ProBNP 3200. Echocardiogram is pending. Review of Systems Constitutional: Reports fever, Reports weakness Eyes: denies blurred vision, denies bulging eye, denies decreased vision Ears: deny: decreased hearing Ears, nose, mouth and throat: Denies headache, Denies sore throat Cardiovascular: Reports dyspnea on exertion, Reports leg edema, Reports orthopnea, Reports shortness of breath Respiratory: Reports congestion, Reports cough with sputum, Reports wheezing Gastrointestinal: Denies abdominal pain, Denies diarrhea, Denies nausea, Denies vomiting Genitourinary: Denies dysuria, Denies hematuria Musculoskeletal: absent: knee pain, knee stiffness, knee swelling Integumentary: Reports as per HPI Neurological: Reports as per HPI Psychiatric: Reports as per HPI Endocrine: Reports as per HPI Hematologic/Lymphatic: Reports as per HPI Allergic/Immunologic: Reports as per HPI Past Medical History Past Medical History: Cancer, Myocardial Infarction ([place]) Additional Past Medical History / Comment(s): mi october 2012 Last Myocardial Infarction Date:: 2012 History of Any Multi-Drug Resistant Organisms: None Reported Past Surgical History: Breast Surgery, Joint Replacement Additional Past Surgical History / Comment(s): kim knee replacement right hip replacement Heart cath with 2 stents. Past Anesthesia/Blood Transfusion Reactions: No Reported Reaction Past Psychological History: No Psychological Hx Reported Smoking Status: Current every day smoker Past Alcohol Use History: None Reported Past Drug Use History: None Reported - Past Family History Mother Additional Family Medical History / Comment(s): from natural causes per patient. Father Family Medical History: Cancer Medications and Allergies Home Medications Medication Instructions Recorded Confirmed Type Aspirin [Adult Low Dose Aspirin EC] 81 mg PO DAILY 04/11/17 04/11/17 History Calcium Carbonate 500 mg PO DAILY 04/11/17 04/11/17 History Cholecalciferol [Vitamin D3] 800 unit PO DAILY 04/11/17 04/11/17 History Citalopram Hydrobromide [CeleXA] 20 mg PO DAILY 04/11/17 04/11/17 History Clopidogrel Bisulfate [Plavix] 75 mg PO DAILY 04/11/17 04/11/17 History Furosemide [Lasix] 40 mg PO DAILY 04/11/17 04/11/17 History HYDROcodone/APAP 5-325MG [Bouton 1 tab PO DAILY PRN 04/11/17 04/11/17 History 5-325] Ibuprofen [Motrin] 800 mg PO DAILY PRN 04/11/17 04/11/17 History Metoprolol Tartrate [Lopressor] 25 mg PO BID 04/11/17 04/11/17 History Multivitamins, Thera [Multivitamin 1 tab PO DAILY 04/11/17 04/11/17 History (formulary)] Omeprazole [PriLOSEC] 20 mg PO BID 04/11/17 04/11/17 History Potassium Chloride [Klor-Con 10] 10 meq PO DAILY 04/11/17 04/11/17 History Ranitidine HCl [Zantac] 150 mg PO DAILY 04/11/17 04/11/17 History Rosuvastatin [Crestor] 10 mg PO DAILY 04/11/17 04/11/17 History Allergies Allergy/AdvReac Type Severity Reaction Status Date / Time No Known Allergies Allergy Verified 04/11/17 16:08 Physical Exam Vitals: Vital Signs Temp Pulse Pulse Resp BP Pulse Ox 04/13/17 08:00 20 04/13/17 07:49 82 04/13/17 07:42 79 04/13/17 07:34 79 95 04/13/17 07:00 97.6 F 71 20 157/76 90 L 04/12/17 21:51 98.7 F 87 18 132/64 92 L 04/12/17 19:45 76 04/12/17 19:35 74 04/12/17 19:28 70 04/12/17 15:22 68 16 04/12/17 15:00 98.4 F 73 28 H 170/83 95 Intake and Output 04/12/17 04/13/17 04/13/17 22:59 06:59 14:59 Other: Voiding Method Toilet Toilet # Voids 1 1 Weight 85.729 kg GENERAL EXAM: Alert, active, comfortable in no apparent distress. HEAD: Normocephalic. EYES: Normal reaction of pupils, equal size. NOSE: Clear with pink turbinates. THROAT: No erythema or exudates. NECK: No masses, no JVD. CHEST: No chest wall deformity. LUNGS: Equal air entry with faint crackles in the posterior bases. Bilateral end expiratory wheeze. Diminished. CVS: S1 and S2 normal with no audible murmurs, regular rhythm. ABDOMEN: No hepatosplenomegaly, normal bowel sounds, no guarding or rigidity. SPINE: No scoliosis or deformity SKIN: No rashes CENTRAL NERVOUS SYSTEM: No focal deficits, tone is normal in all 4 extremities. Extremities: There is trace peripheral edema. No clubbing, no cyanosis. Peripheral pulses are intact. Results - Laboratory Findings CBC and BMP: 04/13/17 07:35 04/13/17 07:35 PT/INR, D-dimer PT 10.5 sec (9.0-12.0) 04/11/17 15:20 INR 1.0 (<1.2) 04/11/17 15:20 D-Dimer 0.66 mg/L FEU (<0.60) H 04/11/17 15:20 Abnormal lab findings: Abnormal Labs 04/11/17 04/11/17 04/11/17 15:20 15:20 15:20 Lymphocytes # 0.8 L D-Dimer 0.66 H Carbon Dioxide 21 L BUN Glucose 179 H Urine Protein 04/11/17 04/13/17 18:00 07:35 Lymphocytes # D-Dimer Carbon Dioxide BUN 27 H Glucose Urine Protein Trace H - Diagnostic Findings Chest x-ray: image reviewed CT scan - chest: image reviewed Assessment and Plan Plan: Impression: #1 Acute exacerbation of suspected systolic congestive heart failure. #2 Acute exacerbation of chronic obstructive pulmonary disease. #3 Acute hypoxic respiratory failure secondary to above. #4 History of coronary artery disease with previous stent placement. #5 Chronic and ongoing tobacco dependence. #6 Obesity. #7 Hypertension. #8 Hyperlipidemia. #9 History of anxiety/depression. #10 Gastroesophageal reflux disease. #11 Osteoarthritis with multiple orthopedic surgeries. Plan: The patient was seen and evaluated by Dr. Gutierrez. Her chest x-ray and CT scans were reviewed. The patient most likely has underlying chronic obstructive pulmonary disease. She is on DuoNeb inhalations 4 times a day, Pulmicort and Perforomist inhalations twice a day. We'll initiate a prednisone taper. She'd benefit from a full pulmonary workup in our office in the outpatient setting including full pulmonary function testing and to make recommendations for her maintenance medications. She is also educated regarding the importance of complete smoking cessation. A Habitrol patch has been applied. Cardiology is on the case. Echocardiogram is pending. She remains on diuretics. She is on subcutaneous heparin for DVT prophylaxis and Protonix for GI prophylaxis. We will increase her activity as tolerated. We'll continue to follow and make further recommendations based on her clinical status. Time with Patient: Greater than 30
--- NOTE | 2017-04-13 11:32 | P.PN ---
Subjective This is a 76-year-old female. 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 Her current cardiac medications include plavix 75 mg daily, crestor 10 mg daily, lopressor 25 mg BID, aspirin 81 mg daily, lasix 40 mg daily and potassium 10 MEQ daily. She presented to the hospital with increasing shortness of breath, cough and fever. We have been asked to see this patient in consultation to evaluate for heart failure. At the time of my exam she denies chest pain, dizziness, palpitations, orthopnea, pedal edema or nausea/vomiting. She last saw her plastics fabricator or welder last week and states there were no changes made and she isn't scheduled to go back for another year. EKG reveals sinus mechanism with nonspecific T-wave abnormalities. D-dimer 0.66, troponin negative x3, pro-BNP 3200, BUN 17, Cr 0.8, CTA negative for PE with pulmonary vascular congestion and cardiac enlargement. Chest x-ray negative. Upon exam today she is seen sitting in bed in no acute distress. She is on room air and denies chest pain, shortness of breath, dizziness, palpitations or nausea. She states her breathing is much improved from yesterday and she is able to cough and clear phlegm. Objective - Vital Signs Vital signs: Vital Signs Temp 97.6 F 04/13/17 07:00 Pulse 82 04/13/17 11:12 Resp 20 04/13/17 08:00 BP 157/76 04/13/17 07:00 Pulse Ox 95 04/13/17 07:34 Intake & Output 04/12/17 04/13/17 04/13/17 18:59 06:59 18:59 Intake Total 780 Balance 780 Weight 85.729 kg Intake: Oral 780 Other: Voiding Method Toilet Toilet # Voids 3 1 - Exam GENERAL: Well-appearing, well-nourished and in no acute distress. NECK: Supple without JVD or thyromegaly. LUNGS: B/L expiratory wheeze with diminished air entry. Respiration equal and unlabored. No rales or rhonchi. Much improved from previous exam. HEART: Regular rate and rhythm without murmurs, rubs or gallops. S1 and S2 heard. EXTREMITIES: Normal range of motion, no edema. No clubbing or cyanosis. Peripheral pulses intact and strong. - Labs CBC & Chem 7: 04/13/17 07:35 04/13/17 07:35 Labs: Abnormal Lab Results - Last 24 Hours (Table) 04/13/17 Range/Units 07:35 BUN 27 H (7-17) mg/dL Microbiology - Last 24 Hours (Table) 04/11/17 15:20 Blood Culture - Preliminary Blood No Growth after 24 hours Assessment and Plan Plan: ASSESSMENT 1. CAD with previous stenting 2. Essential hypertension, controlled 3. Dyslipidemia 4. COPD, acute on chronic exacerbation 5. Chronic tobacco abuse PLAN Smoking cessation discussed again at length. Mrs Leavitt can follow up with her primary plastics fabricator or welder upon discharge. Continue cardiac medications as previously ordered. Nurse Practitioner note has been reviewed, I agree with a documented findings and plan of care. Patient was seen and examined.
--- NOTE | 2017-04-13 11:55 | ECHOF ---
Referral Reason:shortness of breath MEASUREMENTS -------- HEIGHT: 165.1 cm WEIGHT: 85.7 kg BP: 146/66 RVIDd: 3.4 cm (< 3.3) IVSd: 1.1 cm (0.6 - 1.1) LVIDd: 5.6 cm (3.9 - 5.3) LVPWd: 1.0 cm (0.6 - 1.1) IVSs: 1.6 cm LVIDs: 3.9 cm LVPWs: 1.6 cm LAESV Index (A-L): 36.08 ml/m Ao Diam: 3.0 cm (2.0 - 3.7) AV Cusp: 1.8 cm (1.5 - 2.6) LA Diam: 4.3 cm (2.7 - 3.8) MV EXCURSION: 18.048 mm (> 18.000) MV EF SLOPE: 47 mm/s (70 - 150) EPSS: 1.2 cm MV E Dariel: 0.64 m/s MV DecT: 341 ms MV A Dariel: 1.06 m/s MV E/A Ratio: 0.60 RAP: 5.00 mmHg RVSP: 12.48 mmHg FINDINGS -------- Sinus rhythm. This was a technically adequate study. The left ventricular size is normal. There is borderline concentric left ventricular hypertrophy. Overall left ventricular systolic function is normal with, an EF between 55 - 60 %. The right ventricle is normal in size and function. Normal LA size by volume 22+/-6 ml/m2. The right atrium is normal in size. Aortic valve is trileaflet and is mildly thickened. Trace amount of aortic regurgitation. There is no evidence of aortic stenosis. The mitral valve leaflets are mildly thickened. There is trace mitral regurgitation. Trace tricuspid regurgitation present. Right ventricular systolic pressure is normal at < 35 mmHg. There is no evidence of pulmonary hypertension. The pulmonic valve was not well visualized. The aortic root size is normal. Normal inferior vena cava with normal inspiratory collapse consistent with estimated right atrial pressure of 5 mmHg. The pericardium is normal. There is no pericardial effusion. CONCLUSIONS -------- 1. Sinus rhythm. 2. The mitral valve leaflets are mildly thickened. 3. There is trace mitral regurgitation. 4. Trace tricuspid regurgitation present. 5. Right ventricular systolic pressure is normal at < 35 mmHg. 6. There is no evidence of pulmonary hypertension. 7. The pulmonic valve was not well visualized. 8. The aortic root size is normal. 9. There is no pericardial effusion. 10. This was a technically adequate study. 11. The left ventricular size is normal. 12. There is borderline concentric left ventricular hypertrophy. 13. Overall left ventricular systolic function is normal with, an EF between 55 - 60 %. 14. Normal LA size by volume 22+/-6 ml/m2. 15. Aortic valve is trileaflet and is mildly thickened. 16. Trace amount of aortic regurgitation. 17. There is no evidence of aortic stenosis. CHIMNEY SWEEPER: Fan Mosquera RDCS
[2017-04-13] MEDS: MULTIVITAMINS, THERA 1 EACH TAB PO SCH (11:57)
[2017-04-13] MEDS: CHOLECALCIFEROL 400 UNIT TAB PO SCH (11:57)
[2017-04-13] MEDS: predniSONE 20 MG TAB PO SCH (11:57)
[2017-04-13] MEDS: HYDROcodone/APAP 5-325MG 1 EACH TAB PO PRN (13:20)
--- NOTE | 2017-04-13 18:51 | PN ---
PROGRESS NOTE DATE OF SERVICE: 04/13/2017 This 76-year-old woman was admitted with shortness of breath, mostly COPD. The patient also was evaluated for CHF. A 2D echo with Doppler done by Cardiology showed ejection fraction about 55% to 60%, normal LA size, and the BNP was elevated up to 3200. Multiple consultants are following the patient. Troponins are negative at this time. The patient has a significant history of smoking also. Past medical history reviewed. REVIEW OF SYSTEMS: CARDIOVASCULAR SYSTEM: As mentioned earlier. RESPIRATORY SYSTEM: As mentioned earlier. GI: As mentioned earlier. : No dysuria or retention. NERVOUS SYSTEM: No numbness, weakness. CURRENT MEDICATIONS: Current medications are noted and reviewed and include: 1. [place] 5 mg q.6 p.r.n. 2. DuoNeb q.i.d. and p.r.n. 3. Xanax 0.25 t.i.d. 4. Aspirin 325 mg p.o. daily. 5. Lipitor 20 mg daily. 6. Pulmicort b.i.d. 7. Tums 500 mg daily. 8. Vitamin D3 800 units daily. 9. Celexa 20 mg p.o. daily. 10.Plavix 75 mg p.o. daily. 11.Pepcid 20 mg p.o. daily. 12.Perforomist 20 mg b.i.d. 13.Lasix 40 mg p.o. daily. 14.Mucinex. 15.Heparin. 16.Motrin. 17.Lopressor. 18.Multivitamins. 19.Habitrol 14. 20.Nitrostat. 21.Protonix. 22.Restoril. PHYSICAL EXAMINATION: Patient is alert, oriented x3. Pulse 71, blood pressure 157/76, respiration 20, temperature 97.6, pulse ox 90% on 2 L. HEENT: Conjunctivae normal. NECK: No jugular venous distention. CARDIOVASCULAR SYSTEM: S1, S2 muffled. RESPIRATORY: Breath sounds diminished in the bases. Scattered rhonchi and crackles. ABDOMEN: Soft, nontender. No mass palpable. LEGS: No edema. No swelling. NERVOUS SYSTEM: No focal deficit. LABS: CBC within normal limits. Sodium 141, potassium 4.2. ASSESSMENT: 1. Shortness of breath, multifactorial, with chronic obstructive pulmonary disease, acute exacerbation, with acute purulent tracheobronchitis. 2. Possibly mild congestive heart failure with acute diastolic dysfunction, ejection fraction 50% to 55%. 3. History of myocardial infarction. 4. History of degenerative joint disease. 5. History of nicotine dependence, continued, ongoing. RECOMMENDATIONS AND DISCUSSION: I recommend to continue current medication, continue symptomatic treatment, continue with the bronchodilators, continue with steroids, which could be tapered at this time. Otherwise continue the diuretics. Guarded prognosis because of multiple complex medical issues. Further recommendations to follow. Increase ambulation. Check room-air pulse ox. Arrange updrafts at home. Further recommendations to follow. See orders for further details. I discussed with the family at length, discussed with staff. ROGERIO / HENRYN: [id number] /
[2017-04-13] MEDS ORDERED: METOPROLOL TARTRATE 25 MG TAB PO STA (19:07)
[2017-04-14 07:32] LABS: Anion Gap 8 mmol/L; Blood Urea Nitrogen 29 mg/dL (7-17); Calcium 9.3 mg/dL (8.4-10.2); Carbon Dioxide 29 mmol/L (22-30); Chloride 104 mmol/L (98-107); Glucose 89 mg/dL (74-99); Non-African American GFR(MDRD) 59 (>60 ml/min/1.73 sqM); Potassium 3.9 mmol/L (3.5-5.1); Sodium 141 mmol/L (137-145)
[2017-04-14 07:37] VITALS: BP 159/71; RESP 20; TEMP 98.2
[2017-04-14] MEDS: CLOPIDOGREL 75 MG TAB PO SCH (07:59)
[2017-04-14] MEDS: FAMOTIDINE 20 MG TAB PO SCH (07:59)
[2017-04-14] MEDS: NICOTINE 14MG/24HR PATCH TRANSDERM SCH (07:59)
[2017-04-14] MEDS: FUROSEMIDE 40 MG TAB PO SCH (07:59)
[2017-04-14] MEDS: PANTOPRAZOLE 40 MG TABLET PO SCH (07:59)
[2017-04-14] MEDS: POTASSIUM CHLORIDE ER 10 MEQ TAB.ER.PRT PO SCH (07:59)
[2017-04-14] MEDS: CALCIUM CARBONATE 500 MG CHEWABLE PO SCH (07:59)
[2017-04-14] MEDS: ATORVASTATIN 20 MG TAB PO SCH (07:59)
[2017-04-14] MEDS: guaiFENesin 600 MG TABLET.ER PO SCH (07:59)
[2017-04-14] MEDS: HEPARIN SODIUM,PORCINE 5,000 UNIT/ML 1 ML VIAL SQ SCH (07:59)
[2017-04-14] MEDS: predniSONE 20 MG TAB PO SCH (07:59)
[2017-04-14] MEDS: METOPROLOL TARTRATE 25 MG TAB PO SCH (07:59)
[2017-04-14] MEDS: ASPIRIN 81 MG PO SCH (07:59)
[2017-04-14] MEDS: CITALOPRAM HYDROBROMIDE 20 MG TAB PO SCH (07:59)
[2017-04-14] MEDS: FORMOTEROL FUMARATE 20 MCG/2 ML NEBU INHALATION SCH (08:24)
[2017-04-14] MEDS: IPRATROPIUM-ALBUTEROL 3 ML NEB INHALATION SCH ×2 (08:24→12:16)
[2017-04-14] MEDS: BUDESONIDE 1 MG/2 ML NEBU INHALATION SCH (08:24)
[2017-04-14] MEDS: CHOLECALCIFEROL 400 UNIT TAB PO SCH (11:39)
[2017-04-14] MEDS: MULTIVITAMINS, THERA 1 EACH TAB PO SCH (11:39)
--- NOTE | 2017-04-14 12:00 | P.PN ---
Subjective Progress Note Date: 04/14/17 Principal diagnosis: Shortness of breath, cough, congestion This is a very pleasant 76-year-old female patient who follows with Dr. Galeas as her primary care physician. She has a history of right breast cancer, myocardial infarction with previous stent placement in 2015, hyperlipidemia, degenerative joint disease with multiple orthopedic surgeries. She has has chronic and ongoing tobacco dependence of approximately 60 years. 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 She is not on any rescue her maintenance inhalers in the outpatient setting. Not oxygen nor steroid dependent. She presented to the emergency room on 04/11/2017 with complaints of increasing shortness of breath, cough and congestion. She does have a productive cough of white sputum. She did have a T-max of 100.8. No leukocytosis. Chest x-ray showed no acute pulmonary process. A d-dimer was 0.[address] angiogram was performed which revealed no evidence of pulmonary embolism. There was some mild pulmonary vascular congestion with cardiac enlargement. Troponins were negative 3. ProBNP 3200. Echocardiogram is pending. On 04/14/2017 patient is reevaluated. She continues to improve from pulmonary standpoint. She denies chest congestion, cough or hemoptysis. Her lung sounds are a few scattered wheezes. She has been maintaining her oxygen saturations around 94-99% on room air. Afebrile. I good as the dictating and I have Sharonda new girl that we saw on the She has been afebrile, hemodynamically stable. Her echocardiogram from 04/12/2017 shows preserved LV function with EF between 55 and 60%. No evidence of pulmonary hypertension or pericardial effusion. Chest x-ray from 04/12/2017 has been reviewed by Dr. Tabares and shows no evidence of acute pulmonary process, no pleural effusion or consolidation on the background of underlying COPD. Objective - Vital Signs Vital signs: Vital Signs Temp 98.2 F 04/14/17 07:00 Pulse 74 04/14/17 08:46 Resp 20 04/14/17 08:55 BP 159/71 04/14/17 07:00 Pulse Ox 94 L 04/14/17 07:00 Intake & Output 04/13/17 04/14/17 04/14/17 18:59 06:59 18:59 Intake Total 480 450 560 Balance 480 450 560 Weight 85.729 kg Intake: Oral 480 450 560 Other: Voiding Method Toilet Toilet # Voids 3 1 # Bowel Movements 1 - Exam GENERAL EXAM: Alert, active, comfortable in no apparent distress. HEAD: Normocephalic. EYES: Normal reaction of pupils, equal size. NOSE: Clear with pink turbinates. THROAT: No erythema or exudates. NECK: No masses, no JVD. CHEST: No chest wall deformity. LUNGS: Equal air entry with faint crackles in the posterior bases. Bilateral end expiratory wheeze. Diminished. CVS: S1 and S2 normal with no audible murmurs, regular rhythm. ABDOMEN: No hepatosplenomegaly, normal bowel sounds, no guarding or rigidity. SPINE: No scoliosis or deformity SKIN: No rashes CENTRAL NERVOUS SYSTEM: No focal deficits, tone is normal in all 4 extremities. Extremities: There is trace peripheral edema. No clubbing, no cyanosis. Peripheral pulses are intact - Labs CBC & Chem 7: 04/13/17 07:35 04/14/17 06:50 Labs: Abnormal Lab Results - Last 24 Hours (Table) 04/14/17 Range/Units 06:50 BUN 29 H (7-17) mg/dL Microbiology - Last 24 Hours (Table) 04/11/17 15:20 Blood Culture - Preliminary Blood No Growth after 48 hours Assessment and Plan Plan: Assessment and Plan Plan: Impression: #1 Acute exacerbation of suspected systolic congestive heart failure. #2 Acute exacerbation of chronic obstructive pulmonary disease. #3 Acute hypoxic respiratory failure secondary to above. #4 History of coronary artery disease with previous stent placement. #5 Chronic and ongoing tobacco dependence. #6 Obesity. #7 Hypertension. #8 Hyperlipidemia. #9 History of anxiety/depression. #10 Gastroesophageal reflux disease. #11 Osteoarthritis with multiple orthopedic surgeries. Plan: The patient was seen and evaluated by Dr. Tabares. Her chest x-ray and CT scans were reviewed. The patient most likely has underlying chronic obstructive pulmonary disease. She is on DuoNeb inhalations 4 times a day, Pulmicort and Perforomist inhalations twice a day. We'll initiate a prednisone taper. She'd benefit from a full pulmonary workup in our office in the outpatient setting including full pulmonary function testing and to make recommendations for her maintenance medications. She is also educated regarding the importance of complete smoking cessation. A Habitrol patch has been applied. Cardiology is on the case. She remains on diuretics. She is on subcutaneous heparin for DVT prophylaxis and Protonix for GI prophylaxis. We will increase her activity as tolerated. She can be discharged home today from pulmonary standpoint. Follow- up appointment in the office with Dr. Tabares has been set up. We'll continue to follow and make further recommendations based on her clinical status I performed a history & physical examination of the patient and discussed their management with my nurse practitioner, Nini Riley. I reviewed the nurse practitioner's note and agree with the documented findings and plan of care.
[2017-04-14 12:39] VITALS: PULSE 74
--- NOTE | 2017-04-14 16:07 | CDI ---
In responding to this query, please exercise your independent professional judgment. The [facility] Coding Staff and Clinical Documentation Specialists appreciate your assistance in clarifying documentation, maintaining compliance with coding guidelines, accurately documenting patients condition and capturing severity of illness. The fact that a question is asked does not imply that any particular answer is desired or expected. Communication forms are a method of clarifying documentation and are not made part of the Legal Health Record. Thank you in advance for your clarification. Last Revision, May 2015 [facility] [place] [address] [place] [address] Documentation Clarification Form Date: 04/14/2017 3:57:00 PM From: Martha Mike RN, CDS Admit Date: 04/11/2017 7:44:00 PM Patient Name: Lisa Leavitt Visit Number: [id number] Dr. Ramírez Tabares, Conflicting documentation has been found in the medical record. Patient admitted for Acute exacerbation of COPD and possible Acute exacerbation of Diastolic Congestive Heart Failure per H&P. Per Pulmonary consult and progress notes "suspected systolic congestive heart failure" has been documented. History/Risk Factors: Heart Failure, CT, Breast cancer, Clinical Indicators: VS: 100.3 107 18 155/74 91 BNP 3200 ECHO: Left Ventricular function normal EF 55-60%, borderline LVH Treatment: IV Lasix 40mg x 1 dose, Lasix 40 mg po daily In your opinion what is the most clinically appropriate diagnosis for this patient? Acute exacerbation of Diastolic Heart Failure Acute exacerbation of Systolic Heart Failure OTHER explanation of clinical findings Unable to determine (no explanation for clinical findings) Please document in your progress notes and discharge summary in order to capture severity of illness and risk of mortality. Include clinical findings that support your diagnosis. FYI: Press F11 to launch patient chart. Thank you. BRUNO
--- NOTE | 2017-04-14 17:46 | P.DS ---
Providers Date of admission: 04/11/17 19:44 Attending physician: Betty Miller Consults: 04/12/17 18:05 Consult Physician Routine Consulting Provider: Ramírez Tabares Reason/Comments: copd Do you want consulting provider notified?: Yes Primary care physician: Ramírez Adal [facility] Course: This 76-year-old woman with a past medical history multiple medical problems was admitted with shortness of breath which was thought to be multifactorial mostly due to COPD. Patient was treated with bronchodilators and steroids and antibiotics. Patient improved significantly. Dr. Tabares saw the patient during the hospitalization. Patient is cleared for discharge. Home oxygen requirement was monitored. She'll be discharged in a stable condition with a guarded prognosis. On exam vitals stable. Cardio S1 and S2 normal. Respiratory system bilateral scattered rhonchi. Abdomen soft nontender. No system no focal deficit. Final diagnosis 1. Shortness of breath possibly multifactorial with a COPD acute exacerbation with acute purulent tracheobronchitis and as well as CHF acute exacerbation with the mild acute on chronic basilar dysfunction ejection fraction 50-52%. 3. History of myocardial infarction. 4. History of DJD. 5. History and nicotine dependence continue ongoing. Patient Condition at Discharge: Good Plan - Discharge Summary New Discharge Prescriptions: New Budesonide/Formoterol Fumarate [Symbicort 160-4.5 Mcg Inhaler] 1 puff IH BID #1 hfa.aer.ad Ipratropium-Albuterol Nebulize [Duoneb 0.5 mg-3 mg/3 ml Soln] 3 ml INHALATION RT-QID #120 neb Levofloxacin [Levaquin] 500 mg PO DAILY #5 tab Nicotine 14Mg/24Hr Patch [Habitrol] 1 patch TRANSDERM DAILY #30 patch predniSONE 10 mg PO DIRECTED #30 tab Continue Metoprolol Tartrate [Lopressor] 25 mg PO BID Ibuprofen [Motrin] 800 mg PO DAILY PRN PRN Reason: Pain HYDROcodone/APAP 5-325MG [[place] 5-325] 1 tab PO DAILY PRN PRN Reason: Pain Aspirin [Adult Low Dose Aspirin EC] 81 mg PO DAILY Omeprazole [PriLOSEC] 20 mg PO BID Multivitamins, Thera [Multivitamin (formulary)] 1 tab PO DAILY Calcium Carbonate 500 mg PO DAILY Ranitidine HCl [Zantac] 150 mg PO DAILY Potassium Chloride [Klor-Con 10] 10 meq PO DAILY Cholecalciferol [Vitamin D3] 800 unit PO DAILY Furosemide [Lasix] 40 mg PO DAILY Clopidogrel Bisulfate [Plavix] 75 mg PO DAILY Citalopram Hydrobromide [CeleXA] 20 mg PO DAILY Rosuvastatin [Crestor] 10 mg PO DAILY Discharge Medication List Aspirin [Adult Low Dose Aspirin EC] 81 mg PO DAILY 04/11/17 [History] Calcium Carbonate 500 mg PO DAILY 04/11/17 [History] Cholecalciferol [Vitamin D3] 800 unit PO DAILY 04/11/17 [History] Citalopram Hydrobromide [CeleXA] 20 mg PO DAILY 04/11/17 [History] Clopidogrel Bisulfate [Plavix] 75 mg PO DAILY 04/11/17 [History] Furosemide [Lasix] 40 mg PO DAILY 04/11/17 [History] HYDROcodone/APAP 5-325MG [[place] 5-325] 1 tab PO DAILY PRN 04/11/17 [History] Ibuprofen [Motrin] 800 mg PO DAILY PRN 04/11/17 [History] Metoprolol Tartrate [Lopressor] 25 mg PO BID 04/11/17 [History] Multivitamins, Thera [Multivitamin (formulary)] 1 tab PO DAILY 04/11/17 [History ] Omeprazole [PriLOSEC] 20 mg PO BID 04/11/17 [History] Potassium Chloride [Klor-Con 10] 10 meq PO DAILY 04/11/17 [History] Ranitidine HCl [Zantac] 150 mg PO DAILY 04/11/17 [History] Rosuvastatin [Crestor] 10 mg PO DAILY 04/11/17 [History] Budesonide/Formoterol Fumarate [Symbicort 160-4.5 Mcg Inhaler] 1 puff IH BID #1 hfa.aer.ad 04/14/17 [Rx] Ipratropium-Albuterol Nebulize [Duoneb 0.5 mg-3 mg/3 ml Soln] 3 ml INHALATION RT -QID #120 neb 04/14/17 [Rx] Levofloxacin [Levaquin] 500 mg PO DAILY #5 tab 04/14/17 [Rx] Nicotine 14Mg/24Hr Patch [Habitrol] 1 patch TRANSDERM DAILY #30 patch 04/14/17 [ Rx] predniSONE 10 mg PO DIRECTED #30 tab 04/14/17 [Rx] Follow up Appointment(s)/Referral(s): Ramírez Tabares DO [Doctor of Osteopathic Medicine] - 04/27/17 9:45 am ( Congestive heart failure) Ramírez Galeas MD [Primary Care Provider] - 04/21/17 10:00 am Ambulatory/Diagnostic Orders: Complete Blood Count w/diff [LAB.AMB] Location: Determined By Patient Patient Instructions/Handouts: Heart Failure (DC), How to Stop Smoking (DC), Cigarette Smoking and Your Health (GEN), COPD (Chronic Obstructive Pulmonary Disease) (DC), How Your Lungs Work (DC), Chronic Lung Disease and Infection Prevention (DC), Energy Conservation Techniques (DC), Nutrition Guidelines for People with COPD (DC) Activity/Diet/Wound Care/Special Instructions: act limited till f/u diet cardiac no smoking check room air pulse ox post ambulation Discharge Disposition: HOME SELF-CARE
== END 2017-04-14 15:20 | disposition home or self-care (01) | DRG 291 ==
LOC: EC 15:09 → 5MS5E 19:44
PROVIDERS: ADMIT Hospitalist; ATTEND Hospitalist
DX: I11.0 Hypertensive heart disease with heart failure (principal); J96.01 Acute respiratory failure with hypoxia; J44.1 Chronic obstructive pulmonary disease with (acute) exacerbation; J44.0 Chronic obstructive pulmonary disease with (acute) lower respiratory infection; J20.9 Acute bronchitis, unspecified; E78.5 Hyperlipidemia, unspecified; E66.9 Obesity, unspecified; F17.200 Nicotine dependence, unspecified, uncomplicated; I25.10 Atherosclerotic heart disease of native coronary artery without angina pectoris; I25.2 Old myocardial infarction; I50.33 Acute on chronic diastolic (congestive) heart failure; K21.9 Gastro-esophageal reflux disease without esophagitis; F32.9 Major depressive disorder, single episode, unspecified; F41.9 Anxiety disorder, unspecified; R59.0 Localized enlarged lymph nodes; M15.9 Polyosteoarthritis, unspecified; Z79.02 Long term (current) use of antithrombotics/antiplatelets; Z79.82 Long term (current) use of aspirin; Z79.899 Other long term (current) drug therapy; Z85.3 Personal history of malignant neoplasm of breast; Z95.5 Presence of coronary angioplasty implant and graft; Z96.653 Presence of artificial knee joint, bilateral; Z96.641 Presence of right artificial hip joint
CPT/HCPCS: 36415; 71010; 71275; 80048; 80053; 80061; 81003; 82550; 82553; 83605; 83735; 83880; 84484; 85025; 85379; 85610; 85730; 87040; 93005; 93306; 94640; 94644; 94760; 96374; 96375; 99285

== ENCOUNTER → 2018-06-29 | Outpatient (CLI) | payer MEDICARE, BC ==
--- NOTE | 2018-06-30 14:46 | BD ---
EXAMINATION TYPE: Axial Bone Density DATE OF EXAM: 06/29/2018 COMPARISON: NONE CLINICAL HISTORY: Height: 5 FT 2 1/2 IN Weight: 202 FRAX RISK QUESTIONS: RISK FACTORS HISTORY OF: Surgery to Spine/Hip(right/left)/Wrist (right/left): RT HIP When: 2012 Active: YES Postmenopausal woman: AGE 57 Take estrogen and/or progesterone medications: UNSURE Lost more than 2 inches in height since high school: YES MEDICATIONS: Thyroid Medications: YES Which medication: UNSURE How Long: JUST STARTED Osteoporosis Medications: Which medication: How Long: Additional Medications: CELEXA, FUROSEMIDE, POTASSIUM, ZANTAC, VIT D, CALCIUM, MULTI, PRILOSEC, VICOD EN, IBUPROFEN, METOPROLOL TARTRATE, BRILINTA, CRESTOR, BABY ASPIRIN, LASIX Additional History: EXAM MEASUREMENTS: Bone mineral densitometry was performed using the [employer] System. Bone mineral density as measured about the Lumbar spine is: ----- L1-L4(G/cm2): 1.309 T Score Values are as follows: ----- L2: 0.9 ----- L3: 1.5 ----- L4: 1.7 ----- L1-L4: 1.1 PREV NOT DONE HERE Bone mineral density about the L hip (g/cm2): 0.821 T Score values are as follows: -----L Neck: -1.6 -----L Total: -1.5 PREV NOT DONE HERE IMPRESSION: Osteopenia bilateral femora NOTE: T-SCORE=SD OF THE YOUNG ADULT MEAN.
--- NOTE | 2018-07-08 10:35 | MM ---
Reason for exam: additional evaluation requested from prior study. Last mammogram was performed 3 years and 6 months ago. History: Patient is postmenopausal and has history of breast cancer at age 66. Family history of breast cancer in sister at age 50. Implant in the right breast, 2008. Mastectomy of the right breast, 2006. Took antineoplastic beginning at age 66. Physical Findings: Nurse did not find any significant physical abnormalities on exam. MG Diagnostic Mammo LT w CAD CC and MLO view(s) were taken of the left breast. Prior study comparison: January 02, 2015, mammogram, performed at [facility]. December 29, 2013, mammogram, performed at [facility]. January 06, 2013, mammogram, performed at [facility]. January 04, 2012, mammogram, performed at [facility]. The breast tissue is heterogeneously dense. This may lower the sensitivity of mammography. There is no discrete abnormality. No significant new findings when compared with previous films. These results were verbally communicated with the patient and result sheet given to the patient on 07/07/18. ASSESSMENT: Negative, BI-RAD 1 RECOMMENDATION: Follow-up diagnostic mammogram of the left breast in 1 year.
== END | disposition home or self-care (01) ==
LOC: RADMAMWWP 15:13
PROVIDERS: ATTEND Family Medicine
DX: Z08 Encounter for follow-up examination after completed treatment for malignant neoplasm (principal); M85.851 Other specified disorders of bone density and structure, right thigh; M85.852 Other specified disorders of bone density and structure, left thigh; Z85.3 Personal history of malignant neoplasm of breast
CPT/HCPCS: 77065; 77080

== ENCOUNTER 2018-09-14 07:49 | Day surgery (SDC) | payer MEDICARE, BC ==
[2018-09-12 10:23] VITALS: BMI 34.9
[~2018-09-14 07:49] MED LIST: LACTATED RINGERS 1,000 ML IV SCH
[2018-09-14 08:22] VITALS: TEMP 97.1
[2018-09-14] MEDS ORDERED: LACTATED RINGERS 1,000 ML IV ONE ×2 (08:25)
[2018-09-14] MEDS ORDERED: PROPOFOL 10 MG/ML 20 ML VIAL IV ONE (08:28)
--- NOTE | 2018-09-14 08:29 | P.GSHP ---
History of Present Illness H&P Date: 09/14/18 Chief Complaint: Colon cancer screening Patient here today for colonoscopy. Last colonoscopy 10 years ago. No bowel complaints. No family history colon cancer. Past Medical History Past Medical History: Cancer, Heart Failure, COPD, Myocardial Infarction (OK), Osteoarthritis (OA), Thyroid Disorder Additional Past Medical History / Comment(s): breast cancer Last Myocardial Infarction Date:: 02/2016 History of Any Multi-Drug Resistant Organisms: None Reported Past Surgical History: Breast Surgery, Heart Catheterization With Stent, Joint Replacement Additional Past Surgical History / Comment(s): kim knee replacement, right hip replacement, 2 heart stents, rt breast mastectomy, eyelid surgery, kim cataracts Past Anesthesia/Blood Transfusion Reactions: Previous Problems w/ Anesthesia Additional Past Anesthesia/Blood Transfusion Reaction / Comment(s): comes out real shaky Date of Last Stent Placement:: 02/13/16 Smoking Status: Former smoker - Past Family History Mother Additional Family Medical History / Comment(s): from natural causes per patient. Father Family Medical History: Cancer Sister(s) Family Medical History: Cancer Medications and Allergies Home Medications Medication Instructions Recorded Confirmed Type Aspirin [Adult Low Dose Aspirin EC] 81 mg PO DAILY 04/11/17 09/12/18 History Cholecalciferol [Vitamin D3] 800 unit PO DAILY 04/11/17 09/12/18 History Clopidogrel Bisulfate [Plavix] 75 mg PO DAILY 04/11/17 09/12/18 History Furosemide [Lasix] 40 mg PO DAILY 04/11/17 09/12/18 History HYDROcodone/APAP 5-325MG [Lena 1 tab PO DAILY PRN 04/11/17 09/12/18 History 5-325] Ibuprofen [Motrin] 800 mg PO DAILY PRN 04/11/17 09/12/18 History Metoprolol Tartrate [Lopressor] 25 mg PO BID 04/11/17 09/12/18 History Multivitamins, Thera [Multivitamin 1 tab PO DAILY 04/11/17 09/12/18 History (formulary)] Omeprazole [PriLOSEC] 20 mg PO BID 04/11/17 09/12/18 History Potassium Chloride [Klor-Con 10] 10 meq PO DAILY 04/11/17 09/12/18 History Rosuvastatin [Crestor] 10 mg PO DAILY 04/11/17 09/12/18 History Citalopram Hydrobromide [CeleXA] 10 mg PO DAILY 09/12/18 09/12/18 History Ipratropium-Albuterol Nebulize 3 ml INHALATION DAILY PRN 09/12/18 09/12/18 History [Duoneb 0.5 mg-3 mg/3 ml Soln] Methimazole [Tapazole] 5 mg PO DAILY 09/12/18 09/12/18 History Allergies Allergy/AdvReac Type Severity Reaction Status Date / Time No Known Allergies Allergy Verified 09/12/18 10:06 Surgical - Exam Vital Signs Temp Pulse Resp BP Pulse Ox 97.1 F L 71 18 166/75 100 09/14/18 08:20 09/14/18 08:20 09/14/18 08:20 09/14/18 08:20 09/14/18 08:20 Physical exam: General: Well-developed, well-nourished HEENT: Normocephalic, sclerae nonicteric Abdomen: Nontender, nondistended Extremities: No edema Neuro: Alert and oriented Assessment and Plan (1) Colon cancer screening Narrative/Plan: Will proceed with colonoscopy Current Visit: Yes Status: Acute Code(s): Z12.11 - ENCOUNTER FOR SCREENING FOR MALIGNANT NEOPLASM OF COLON SNOMED Code(s): 402214389
--- NOTE | 2018-09-14 08:44 | P.PCN ---
Date of Procedure: 09/14/18 Procedure(s) Performed: PREOPERATIVE DIAGNOSIS: Colon cancer screening POSTOPERATIVE DIAGNOSIS: Normal exam PROCEDURE: Colonoscopy ANESTHESIA: MAC SURGEON: Oleg Molina M.D. SPECIMENS: None ENDOSCOPIC PROCEDURE: The patient was placed on the endoscopy table in the left decubitus position. The Olympus colonoscope was inserted into the anus and passed under direct visualization to the base of the cecum. The appendiceal orifice was visualized. From that point the scope was slowly withdrawn inspecting all surfaces carefully. There were no neoplastic inflammatory or polypoid lesions throughout the cecum, ascending, transverse, descending, sigmoid and rectum. There was no visible diverticulosis noted. Digital rectal examination was normal. The patient was taken to the recovery room in stable condition per anesthesia guidelines. RECOMMENDATIONS: Increase fiber. Follow-up colonoscopy 10 years.
[2018-09-14 09:04] VITALS: BP 123/76; PULSE 63; RESP 16
== END 2018-09-14 09:21 | disposition home or self-care (01) ==
LOC: ORWHC2ENDO 07:49
PROVIDERS: ATTEND Surgery
DX: Z12.11 Encounter for screening for malignant neoplasm of colon (principal); I11.0 Hypertensive heart disease with heart failure; I50.9 Heart failure, unspecified; J44.9 Chronic obstructive pulmonary disease, unspecified; I25.2 Old myocardial infarction; M19.90 Unspecified osteoarthritis, unspecified site; E07.9 Disorder of thyroid, unspecified; I25.10 Atherosclerotic heart disease of native coronary artery without angina pectoris; E78.5 Hyperlipidemia, unspecified; F32.9 Major depressive disorder, single episode, unspecified; Z85.3 Personal history of malignant neoplasm of breast; Z87.891 Personal history of nicotine dependence; Z79.02 Long term (current) use of antithrombotics/antiplatelets; Z79.82 Long term (current) use of aspirin; Z79.899 Other long term (current) drug therapy
CPT/HCPCS: J2704; G0121

== ENCOUNTER → 2018-12-23 | Outpatient (CLI) | payer MEDICARE, BC ==
--- NOTE | 2018-12-23 10:02 | US ---
EXAMINATION TYPE: US kidneys/renal and bladder DATE OF EXAM: 12/23/2018 COMPARISON: NONE CLINICAL HISTORY: R94.4 abnormal kidney function. Abnormal kidney function EXAM MEASUREMENTS: Right Kidney: 11.3 x 4.2 x 4.4 cm Left Kidney: 10.5 x 4.9 x 4.4 cm Right Kidney: no evidence of hydronephrosis Left Kidney: no evidence of hydronephrosis Bladder: appears wnl Bilateral Jets seen: yes There is no evidence for hydronephrosis at this point in time. No nephrolithiasis is seen. No karla s are identified. The urinary bladder is anechoic. Bilateral ureteral jets are seen. IMPRESSION: No hydronephrosis or nephrolithiasis. No current sonographic sequela of medical renal disease.
== END | disposition home or self-care (01) ==
LOC: RADUSWWP 08:44
PROVIDERS: ATTEND Family Medicine
DX: R94.4 Abnormal results of kidney function studies (principal)
CPT/HCPCS: 76770

== ENCOUNTER → 2019-01-24 | Outpatient (CLI) | payer MEDICARE, BC | END | disposition home or self-care (01) | LOC: LABWHC1 14:17 | PROVIDERS: ATTEND Physical Medicine & Rehabilitation | DX: Z01.812 Encounter for preprocedural laboratory examination (principal); N28.9 Disorder of kidney and ureter, unspecified | CPT/HCPCS: 36415; 82565; 84520 ==

== ENCOUNTER → 2019-07-10 | Outpatient (CLI) | payer MEDICARE, BC ==
[2019-07-10 17:14] LABS: Chol/HDL Ratio 3.18
== END | disposition home or self-care (01) ==
LOC: LABWHC1 08:20
PROVIDERS: ATTEND Internal Medicine Cardiovascular Disease
DX: E78.2 Mixed hyperlipidemia (principal)
CPT/HCPCS: 36415; 80061; 84450; 84460

== ENCOUNTER → 2019-08-18 | Outpatient (CLI) | payer MEDICARE ==
--- NOTE | 2019-08-18 14:08 | XR ---
EXAMINATION TYPE: XR chest 2V DATE OF EXAM: 08/18/2019 COMPARISON: Prior chest x-ray 04/12/2017 HISTORY: Cough and congestion TECHNIQUE: Frontal and lateral views of the chest are obtained. FINDINGS: There is no focal air space opacity, pleural effusion, or pneumothorax seen. The cardiac silhouette size is stable, borderline enlarged. There is eventration of the hemidiaphragm on the righ t. Aorta is dense. Prominent lung volumes suggest underlying COPD. There is thoracic spondylosis. The osseous structures are intact. IMPRESSION: Cardiomegaly is stable
== END | disposition home or self-care (01) ==
LOC: RADXRWHC 13:10
PROVIDERS: ATTEND Family Medicine
DX: I51.7 Cardiomegaly (principal)
CPT/HCPCS: 71046

== ENCOUNTER → 2020-02-02 | Outpatient (CLI) | payer MEDICARE ==
--- NOTE | 2020-02-02 12:48 | US ---
EXAMINATION TYPE: US gallbladder DATE OF EXAM: 02/02/2020 COMPARISON: NONE CLINICAL HISTORY: 79-year-old female K81.1 Chronic cholecystitis. Pt states epigastric pain that radi ates to back TECHNIQUE: Multiple sonographic images of the right upper quadrant are obtained. FINDINGS: EXAM MEASUREMENTS: Liver Length: 15.8 cm Gallbladder Wall: 0.4 cm CBD: 8.5 mm. Right Kidney: 11.5 x 4.3 x 4.0 cm Pancreas: Body and tail obscured by overlying bowel gas. Visualized pancreatic neck and head show no gross abnormality. Liver: Limited views due to patient body habitus and some rib shadowing. Gallbladder: Lumen filled with gallstones, wall mildly thickened. No obvious hydropic change. Evidence for sonographic Portillo's sign: Yes CBD: Dilated. Right Kidney: No hydronephrosis. IMPRESSION: 1. Gallbladder wall thickening and numerous calculi filling the gallbladder lumen. Given positive son ographic Portillo sign, correlate for acute versus chronic cholecystitis. HIDA scan may be useful. 2. Also, the bile duct is dilated at 8.5 mm. Correlate with alkaline phosphatase and bilirubin levels to exclude biliary obstruction.
--- NOTE | 2020-02-02 16:03 | NM ---
Nuclear medicine hepatobiliary scan. HISTORY: Pain. COMPARISON: Ultrasound 02/02/2020 DOSAGE: The patient received and 5.2 mCi of Technetium 99m Choletec. FINDINGS: There is normal hepatic extraction. The gallbladder is seen by 75 minutes. There is bilia ry to bowel clearance by 60 minutes. Ejection fraction could not be obtained as the patient has ultra sound documented gallstones. IMPRESSION: 1. Delayed gallbladder filling at 75 minutes correlate for cholecystitis.
== END | disposition home or self-care (01) ==
LOC: RADUSWWP 12:06
PROVIDERS: ATTEND Surgery
DX: K80.10 Calculus of gallbladder with chronic cholecystitis without obstruction (principal); K82.8 Other specified diseases of gallbladder; K83.8 Other specified diseases of biliary tract; Z91.013 Allergy to seafood
CPT/HCPCS: 76705; 78226; A9537

== ENCOUNTER → 2020-02-08 | Day surgery (SDC) | payer MEDICARE ==
[2020-02-06 11:13] VITALS: BMI 33.3
[~2020-02-08] MED LIST changes: +LABETALOL SYRINGE 5 MG/ML IVP ONE; +LIDOCAINE 1% (10MG/ML) FOR IV START INTRADERMA PRN; +LIDOCAINE 1% INJ 10MG/ML (20 ML MDV) ONE; +PROPOFOL 10 MG/ML 20 ML VIAL IV ONE
[2020-02-08 11:06] VITALS: TEMP 98.2
--- NOTE | 2020-02-08 11:53 | P.GSHP ---
History of Present Illness H&P Date: 02/08/20 Chief Complaint: Epigastric pain This a 79-year-old female who's had complete epigastric pain. Patient presents for EGD. Past Medical History Past Medical History: Cancer, Heart Failure, COPD, Myocardial Infarction ([place]), Osteoarthritis (OA), Thyroid Disorder Additional Past Medical History / Comment(s): breast cancer Last Myocardial Infarction Date:: 02/2016 History of Any Multi-Drug Resistant Organisms: None Reported Past Surgical History: Breast Surgery, Heart Catheterization With Stent, Joint Replacement Additional Past Surgical History / Comment(s): kim knee replacement, right hip replacement, 2 heart stents, rt breast mastectomy, eyelid surgery, kim cataracts Past Anesthesia/Blood Transfusion Reactions: Previous Problems w/ Anesthesia Additional Past Anesthesia/Blood Transfusion Reaction / Comment(s): comes out real shaky Date of Last Stent Placement:: 02/13/16 Smoking Status: Never smoker - Past Family History Mother Additional Family Medical History / Comment(s): from natural causes per patient. Father Family Medical History: Cancer Sister(s) Family Medical History: Cancer Medications and Allergies Home Medications Medication Instructions Recorded Confirmed Type Aspirin [Adult Low Dose Aspirin EC] 81 mg PO DAILY 04/11/17 02/06/20 History Cholecalciferol [Vitamin D3] 800 unit PO DAILY 04/11/17 02/06/20 History Clopidogrel Bisulfate [Plavix] 75 mg PO DAILY 04/11/17 02/06/20 History Furosemide [Lasix] 40 mg PO DAILY PRN 04/11/17 02/06/20 History HYDROcodone/APAP 5-325MG [[place] 1 tab PO DAILY PRN 04/11/17 02/06/20 History 5-325] Ibuprofen [Motrin] 800 mg PO DAILY PRN 04/11/17 02/06/20 History Metoprolol Tartrate [Lopressor] 25 mg PO BID 04/11/17 02/06/20 History Multivitamins, Thera [Multivitamin 1 tab PO DAILY 04/11/17 02/06/20 History (formulary)] Potassium Chloride [Klor-Con 10] 10 meq PO DAILY 04/11/17 02/06/20 History Citalopram Hydrobromide [CeleXA] 10 mg PO DAILY 09/12/18 02/06/20 History Ipratropium-Albuterol Nebulize 3 ml INHALATION DAILY PRN 09/12/18 02/06/20 History [Duoneb 0.5 mg-3 mg/3 ml Soln] Methimazole [Tapazole] 5 mg PO DAILY 09/12/18 02/06/20 History Atorvastatin [Lipitor] 10 mg PO HS 02/06/20 02/06/20 History Famotidine [Pepcid] 20 mg PO DAILY 02/08/20 02/08/20 History Allergies Allergy/AdvReac Type Severity Reaction Status Date / Time shellfish derived [Shellfish] Allergy Nausea & Verified 02/08/20 11:06 Vomiting Surgical - Exam Vital Signs Temp Pulse Resp BP Pulse Ox 98.2 F 90 16 174/81 97 02/08/20 11:05 02/08/20 11:05 02/08/20 11:05 02/08/20 11:05 02/08/20 11:05 - General well developed, well nourished, no distress - Eyes PERRL - ENT normal pinna - Neck no masses - Respiratory normal expansion - Cardiovascular Rhythm: regular - Abdomen Abdomen: soft, non tender Assessment and Plan Assessment: Epigastric pain. We'll perform EGD.
--- NOTE | 2020-02-08 12:01 | P.OP ---
Date of Procedure: 02/08/20 Preoperative Diagnosis: Epigastric pain Postoperative Diagnosis: Antral gastritis Sliding hilar hernia Mild esophagitis Procedure(s) Performed: EGD Anesthesia: MAC Surgeon: Pb Zepeda Pathology: other (Antrum, esophagus) Condition: stable Disposition: PACU Description of Procedure: The patient's placed on the endoscopy table lateral position. She received IV sedation. The gastroscope placed oropharynx passed in the esophagus and stomach. Scope was placed through the pylorus. First and second portion of the duodenum appeared normal. Scope was then brought back and the antrum and this was mildly inflamed a biopsy was performed. Scope was then retroflexed and there was a small sliding hiatal hernia. The GE junction was at 38 cm. The distal esophagus appeared inflamed and a biopsies performed. The proximal esophagus appeared normal. Scope was withdrawn for patient.
[2020-02-08 12:29] VITALS: BP 157/81; PULSE 85; RESP 16
== END | disposition home or self-care (01) ==
LOC: ORWHC2ENDO 10:26
PROVIDERS: ATTEND Surgery
DX: K29.50 Unspecified chronic gastritis without bleeding (principal); K20.9 Esophagitis, unspecified; K44.9 Diaphragmatic hernia without obstruction or gangrene; I25.10 Atherosclerotic heart disease of native coronary artery without angina pectoris; I50.9 Heart failure, unspecified; I25.2 Old myocardial infarction; J44.9 Chronic obstructive pulmonary disease, unspecified; F32.9 Major depressive disorder, single episode, unspecified; E07.9 Disorder of thyroid, unspecified; M19.90 Unspecified osteoarthritis, unspecified site; Z95.5 Presence of coronary angioplasty implant and graft; Z91.013 Allergy to seafood; Z79.02 Long term (current) use of antithrombotics/antiplatelets; Z79.1 Long term (current) use of non-steroidal anti-inflammatories (NSAID); Z79.82 Long term (current) use of aspirin; Z79.899 Other long term (current) drug therapy; Z96.653 Presence of artificial knee joint, bilateral; Z96.641 Presence of right artificial hip joint; Z85.3 Personal history of malignant neoplasm of breast; Z98.41 Cataract extraction status, right eye; Z98.42 Cataract extraction status, left eye; Z90.11 Acquired absence of right breast and nipple; Z80.9 Family history of malignant neoplasm, unspecified
CPT/HCPCS: 88305; 43239; J2001; J2704

== ENCOUNTER 2020-02-21 06:11 | Day surgery (SDC) | payer MEDICARE ==
[2020-02-14 18:13] VITALS: BMI 33.3
[~2020-02-21 06:11] MED LIST changes: +ACETAMINOPHEN TAB 500 MG TAB PO ONE; +DEXAMETHASONE SOD PHOSPHATE 10 MG/ML 1 ML VIAL IV ONE; +HEPARIN SODIUM,PORCINE 5,000 UNIT/ML 1 ML VIAL SQ ONE; +HYDROmorphone 0.5 MG/0.5 ML SYRINGE IVP PRN; -LABETALOL SYRINGE 5 MG/ML IVP ONE; -LIDOCAINE 1% (10MG/ML) FOR IV START INTRADERMA PRN; -LIDOCAINE 1% INJ 10MG/ML (20 ML MDV) ONE; +MIDAZOLAM 2 MG/2 ML VIAL IV PRN; +ONDANSETRON 4 MG/2 ML VIAL IVP ONE; -PROPOFOL 10 MG/ML 20 ML VIAL IV ONE
[2020-02-21] MEDS ORDERED: ONDANSETRON 4 MG/2 ML VIAL ONE (07:06)
[2020-02-21] MEDS ORDERED: HEPARIN SODIUM,PORCINE 5,000 UNIT/ML 1 ML VIAL ONE (07:06)
[2020-02-21 07:20] LABS: Glucose,Whole Blood 105 mg/dL (75-99)
[2020-02-21] MEDS ORDERED: ACETAMINOPHEN TAB 500 MG TAB ONE (07:32)
[2020-02-21] MEDS ORDERED: LIDOCAINE 1% INJ 10MG/ML (20 ML MDV) ONE (07:34)
[2020-02-21] MEDS ORDERED: PROPOFOL 10 MG/ML 20 ML VIAL IV ONE (07:34)
[2020-02-21] MEDS ORDERED: fentaNYL (PF) 50 MCG/ML 2 ML AMP ONE (07:34)
[2020-02-21] MEDS ORDERED: NEOSTIGMINE 1 MG/ML 10 ML VIAL ONE (07:34)
[2020-02-21] MEDS ORDERED: MIDAZOLAM 2 MG/2 ML VIAL ONE (07:34)
[2020-02-21] MEDS ORDERED: GLYCOPYRROLATE 0.2 MG/ML 2 ML VIAL ONE (07:34)
[2020-02-21] MEDS ORDERED: ROCURONIUM BROMIDE 10 MG/ML 5 ML VIAL IV ONE (07:34)
[2020-02-21] MEDS ORDERED: SUCCINYLCHOLINE CHLORIDE 100 MG/5 ML SYR IV ONE (07:34)
[2020-02-21] MEDS ORDERED: LACTATED RINGERS 1,000 ML IV ONE ×2 (07:55)
[2020-02-21] MEDS ORDERED: LIDOCAINE 1%-EPI 1:100,000 20 ML VIAL SQ ONE ×2 (07:55→08:01)
--- NOTE | 2020-02-21 08:31 | P.GSHP ---
History of Present Illness H&P Date: 02/21/20 Chief Complaint: Right upper Quadrant pain This a 79-year-old female who is upper quadrant pain. Her recent ultrasound shows evidence of cholelithiasis. And safer laparoscopic cholecystectomy Past Medical History Past Medical History: Cancer, Heart Failure, COPD, Hearing Disorder / Deafness, Myocardial Infarction ([place]), Osteoarthritis ([place]), Thyroid Disorder Additional Past Medical History / Comment(s): breast cancer, takes prednisone for COPD, has been on for a couple months per spouse Last Myocardial Infarction Date:: 02/2016 History of Any Multi-Drug Resistant Organisms: None Reported Past Surgical History: Breast Surgery, Heart Catheterization With Stent, Joint Replacement Additional Past Surgical History / Comment(s): kim knee replacement, right hip replacement, 2 heart stents, rt breast mastectomy, eyelid surgery, kim cataracts, recent EGD Past Anesthesia/Blood Transfusion Reactions: Previous Problems w/ Anesthesia Additional Past Anesthesia/Blood Transfusion Reaction / Comment(s): comes out real shaky Date of Last Stent Placement:: 02/13/16 Smoking Status: Never smoker - Past Family History Mother Additional Family Medical History / Comment(s): from natural causes per patient. Father Family Medical History: Cancer Sister(s) Family Medical History: Cancer Medications and Allergies Home Medications Medication Instructions Recorded Confirmed Type Aspirin [Adult Low Dose Aspirin EC] 81 mg PO DAILY 04/11/17 02/14/20 History Cholecalciferol [Vitamin D3] 800 unit PO DAILY 04/11/17 02/14/20 History Clopidogrel Bisulfate [Plavix] 75 mg PO DAILY 04/11/17 02/14/20 History Furosemide [Lasix] 40 mg PO DAILY PRN 04/11/17 02/14/20 History HYDROcodone/APAP 5-325MG [[place] 1 tab PO DAILY PRN 04/11/17 02/14/20 History 5-325] Ibuprofen [Motrin] 800 mg PO DAILY PRN 04/11/17 02/14/20 History Metoprolol Tartrate [Lopressor] 25 mg PO BID 04/11/17 02/21/20 History Multivitamins, Thera [Multivitamin 1 tab PO DAILY 04/11/17 02/14/20 History (formulary)] Potassium Chloride [Klor-Con 10] 10 meq PO DAILY 04/11/17 02/14/20 History Citalopram Hydrobromide [CeleXA] 10 mg PO DAILY 09/12/18 02/14/20 History Ipratropium-Albuterol Nebulize 3 ml INHALATION DAILY PRN 09/12/18 02/14/20 History [Duoneb 0.5 mg-3 mg/3 ml Soln] Methimazole [Tapazole] 5 mg PO DAILY 09/12/18 02/14/20 History Atorvastatin [Lipitor] 10 mg PO HS 02/06/20 02/14/20 History Famotidine [Pepcid] 20 mg PO DAILY 02/08/20 02/14/20 History predniSONE 2.5 mg PO DAILY 02/14/20 02/14/20 History Allergies Allergy/AdvReac Type Severity Reaction Status Date / Time shellfish derived [Shellfish] Allergy Nausea & Verified 02/21/20 06:54 Vomiting Surgical - Exam Vital Signs Temp Pulse Resp BP Pulse Ox 97.3 F L 75 16 152/72 96 02/21/20 07:01 02/21/20 07:01 02/21/20 07:01 02/21/20 07:01 02/21/20 07:01 - General well developed, well nourished, no distress - Eyes PERRL - ENT normal pinna - Neck no masses - Respiratory normal expansion - Cardiovascular Rhythm: regular - Abdomen Abdomen: soft, non tender Results - Labs Abnormal Lab Results - Last 24 Hours (Table) 02/21/20 Range/Units 07:19 POC Glucose (mg/dL) 105 H (75-99) mg/dL Assessment and Plan Assessment: Right upper quadrant pain Cholelithiasis We'll perform laparoscopic cholecystectomy.
--- NOTE | 2020-02-21 08:34 | P.OP ---
Date of Procedure: 02/21/20 Preoperative Diagnosis: Cholelithiasis Cholecystitis Postoperative Diagnosis: Lithiasis and Cholecystitis Procedure(s) Performed: Laparoscopic cholecystectomy Anesthesia: PABLO Surgeon: Pb Zepeda Pathology: other (Gallbladder) Condition: stable Disposition: PACU Description of Procedure: The patient was placed on the operating table. The patient received a general endotracheal tube anesthesia. The patients abdomen was prepped and draped in the usual sterile fashion. Through an infraumbilical stab incision, the fascia of the anterior abdominal wall was grasped with a pair of Kochers and then the Veress needle was placed in the peritoneal cavity. Position of the Veress needle was confirmed with positive drop test. The abdomen was then insufflated. After adequate insufflation, the 10 mm trocar was placed in the peritoneal cavity. Following this the laparoscope was placed in the peritoneal cavity. The patient was placed in the head-up, right side up position and then a 5 mm trocar was placed in the right lateral and right subcostal position under direct visualization. A 8 mm trocar was placed in the epigastric position. The gallbladder was grasped in the fundus and infundibulum. Traction on the gallbladder was placed in the lateral and the cephalad positions. The triangle of Calot was visualized.. The cystic duct was bluntly dissected until the union of the cystic duct and common bile duct was seen. A critical view of safety was achieved. The cystic duct was then divided and sealed with the Harmonic scissors. A PDS Endoloop was then placed throughout the cystic duct stump. The cystic artery divided and sealed with the Harmonic scissors. The gallbladder was then removed from the liver bed using Harmonic scissors. The gallbladder was then extracted through the epigastric port site. Operative field was checked for any bleeding spots and Harmonic scissors was used to coagulate the liver bed. The abdomen was irrigated. The trocars were removed. The skin was closed using interrupted 3-0 Vicryl suture. Dermabond dressing were applied. The patient tolerated the procedure well.
[2020-02-21 08:44] VITALS: TEMP 97
[2020-02-21] MEDS ORDERED: HYDROcodone/APAP 5-325MG 1 EACH TAB ONE (10:01)
[2020-02-21] MEDS ORDERED: HYDROcodone/APAP 5-325MG 1 EACH TAB PO ONE ×2 (10:01→10:15)
[2020-02-21 10:24] VITALS: RESP 20
[2020-02-21 11:43] VITALS: BP 144/70; PULSE 60
== END 2020-02-21 11:15 | disposition home or self-care (01) ==
LOC: OR 06:11
PROVIDERS: ATTEND Surgery
DX: K80.12 Calculus of gallbladder with acute and chronic cholecystitis without obstruction (principal); I50.9 Heart failure, unspecified; J44.9 Chronic obstructive pulmonary disease, unspecified; H91.90 Unspecified hearing loss, unspecified ear; I25.2 Old myocardial infarction; M19.90 Unspecified osteoarthritis, unspecified site; E07.9 Disorder of thyroid, unspecified; I25.10 Atherosclerotic heart disease of native coronary artery without angina pectoris; Z85.3 Personal history of malignant neoplasm of breast; Z90.11 Acquired absence of right breast and nipple; Z95.5 Presence of coronary angioplasty implant and graft; Z96.653 Presence of artificial knee joint, bilateral; Z96.641 Presence of right artificial hip joint; Z98.890 Other specified postprocedural states; Z98.41 Cataract extraction status, right eye; Z98.42 Cataract extraction status, left eye; Z91.89 Other specified personal risk factors, not elsewhere classified; Z79.52 Long term (current) use of systemic steroids; Z79.82 Long term (current) use of aspirin; Z79.02 Long term (current) use of antithrombotics/antiplatelets; Z79.891 Long term (current) use of opiate analgesic; Z79.1 Long term (current) use of non-steroidal anti-inflammatories (NSAID); Z91.013 Allergy to seafood; Z97.2 Presence of dental prosthetic device (complete) (partial); Z80.9 Family history of malignant neoplasm, unspecified
CPT/HCPCS: 88304; 47562; J2250; J1644; J1100; J2710; J0690; J2405; J2001; J3010; J0330; J2704; J1170

== ENCOUNTER 2020-08-14 19:45 | Emergency (ER) | payer MEDICARE ==
--- NOTE | 2020-08-14 20:03 | ED ---
Recheck HPI - General Chief Complaint: Recheck/Abnormal Lab/Rx Stated Complaint: High blood pressure Time Seen by Provider: 08/14/20 20:00 Source: patient Mode of arrival: ambulatory Limitations: no limitations - History of Present Illness Initial Comments: 79-year-old female with history of hypertension and myocardial infarction presents emergency Department with a chief complaint ofhigh blood pressure. Patient states his been ongoing for the past several months. States she obtains a blood pressure multiple times per day and it runs in the 180s over 100s. patient states she has an increased appetite whenever her blood pressure is high and after she eats, it decreases. Patient reports she was on metoprolol for quite some time and then was started on losartan 100 mg twice a day about 2-3 months ago by the primary care physician. She states this is not significantly improving her blood pressure. patient denies abdominal pain, urinary symptoms, visual changes or headache.patient had a stress test performed yesterday by Dr. Gutiérrez but does not know the results of the study yet. - Related Data Home Medications Medication Instructions Recorded Confirmed Aspirin [Adult Low Dose Aspirin EC] 81 mg PO DAILY 04/11/17 02/14/20 Cholecalciferol [Vitamin D3 (10 800 unit PO DAILY 04/11/17 02/14/20 Mcg = 400 Iu)] Clopidogrel Bisulfate [Plavix] 75 mg PO DAILY 04/11/17 02/14/20 Furosemide [Lasix] 40 mg PO DAILY PRN 04/11/17 02/14/20 HYDROcodone/APAP 5-325MG [[place] 1 tab PO DAILY PRN 04/11/17 02/14/20 5-325] Ibuprofen [Motrin] 800 mg PO DAILY PRN 04/11/17 02/14/20 Metoprolol Tartrate [Lopressor] 25 mg PO BID 04/11/17 02/21/20 Multivitamins, Thera [Multivitamin 1 tab PO DAILY 04/11/17 02/14/20 (formulary)] Potassium Chloride [Klor-Con 10] 10 meq PO DAILY 04/11/17 02/14/20 Citalopram Hydrobromide [CeleXA] 10 mg PO DAILY 09/12/18 02/14/20 Ipratropium-Albuterol Nebulize 3 ml INHALATION DAILY PRN 09/12/18 02/14/20 [Duoneb 0.5 mg-3 mg/3 ml Soln] Methimazole [Tapazole] 5 mg PO DAILY 09/12/18 02/14/20 Atorvastatin [Lipitor] 10 mg PO HS 02/06/20 02/14/20 Famotidine [Pepcid] 20 mg PO DAILY 02/08/20 02/14/20 predniSONE 2.5 mg PO DAILY 02/14/20 02/14/20 Previous Rx's Medication Instructions Recorded Docusate [Colace] 100 mg PO BID #20 capsule 02/21/20 HYDROcodone/APAP 5-325MG [[place] 1 tab PO Q6HR PRN #10 tab 02/21/20 5-325] Allergies Allergy/AdvReac Type Severity Reaction Status Date / Time shellfish derived [Shellfish] Allergy Nausea & Verified 02/21/20 06:54 Vomiting Review of Systems ROS Statement: Those systems with pertinent positive or pertinent negative responses have been documented in the HPI. ROS Other: All systems not noted in ROS Statement are negative. Past Medical History Past Medical History: Cancer, Heart Failure, COPD, Hearing Disorder / Deafness, Myocardial Infarction ([place]), Osteoarthritis (OA), Thyroid Disorder Additional Past Medical History / Comment(s): breast cancer, takes prednisone for COPD, has been on for a couple months per spouse Last Myocardial Infarction Date:: 02/2016 History of Any Multi-Drug Resistant Organisms: None Reported Past Surgical History: Breast Surgery, Heart Catheterization With Stent, Joint Replacement Additional Past Surgical History / Comment(s): kim knee replacement, right hip r eplacement, 2 heart stents, rt breast mastectomy, eyelid surgery, kim cataracts, recent EGD Past Anesthesia/Blood Transfusion Reactions: Previous Problems w/ Anesthesia Additional Past Anesthesia/Blood Transfusion Reaction / Comment(s): comes out real shaky Date of Last Stent Placement:: 02/13/16 Past Psychological History: No Psychological Hx Reported Smoking Status: Never smoker - Past Family History Mother Additional Family Medical History / Comment(s): from natural causes per patient. Father Family Medical History: Cancer Sister(s) Family Medical History: Cancer General Exam Limitations: no limitations General appearance: alert, in no apparent distress Head exam: Present: atraumatic, normocephalic, normal inspection Eye exam: Present: normal appearance, PERRL, EOMI, other (Limited funduscopic examination reveals no acute findings) Pupils: Present: normal accommodation ENT exam: Present: normal exam, normal oropharynx, mucous membranes moist Neck exam: Present: normal inspection, full ROM. Absent: tenderness Respiratory exam: Present: normal lung sounds bilaterally. Absent: respiratory distress, chest wall tenderness Cardiovascular Exam: Present: regular rate, normal heart sounds GI/Abdominal exam: Present: soft. Absent: distended, tenderness, guarding, rebound Extremities exam: Present: normal inspection, full ROM, normal capillary refill, other (+2 dorsalis pedis and posterior tibialis bilaterally.). Absent: tenderness, pedal edema, joint swelling, calf tenderness Back exam: Present: normal inspection, full ROM. Absent: tenderness Neurological exam: Present: alert, oriented X3, normal gait Psychiatric exam: Present: normal affect, normal mood Skin exam: Present: warm, dry, intact, normal color Course Vital Signs 08/14/20 08/14/20 08/14/20 19:52 20:30 22:00 Temperature 98.7 F Pulse Rate 76 71 75 Respiratory 18 20 18 Rate Blood Pressure 177/100 167/74 170/88 O2 Sat by Pulse 98 99 98 Oximetry 08/14/20 22:30 Temperature 99.0 F Pulse Rate Respiratory Rate Blood Pressure O2 Sat by Pulse Oximetry Medical Decision Making - Medical Decision Making 79-year-old female history of hypertension presenting to the emergency department with a chief complaint of high blood pressure.on physical examination, patient is resting comfortably. She is not in any respiratory d istress.vital signs seemed to be in the 170s systolic over 90s. She is otherwise completely symptom.palpable DP and PT bilaterally. No swelling in the legs. No chest pain or shortness of breath. elevated blood pressure has been an issue over the last 6 months for the patient. CBC CMP and UA unremarkable. Normal renal function. Initial troponins are negative. EKG showing no acute findings. Chest x-ray is unremarkable. I advised the patient to follow up with her integration technician and her primary care physician in order to adjust the antihypertensive medications. Strict return parameters were thoroughly discussed the patient was understanding and agreeable. Case discussed with physician. - Lab Data Result diagrams: 08/14/20 20:55 08/14/20 20:55 Lab Results 08/14/20 08/14/20 08/14/20 Range/Units 20:55 20:55 20:55 WBC 11.3 H (3.8-10.6) k/uL RBC 3.92 (3.80-5.40) m/uL Hgb 12.7 (11.4-16.0) gm/dL Hct 37.7 (34.0-46.0) % MCV 96.1 (80.0-100.0) fL MCH 32.2 (25.0-35.0) pg MCHC 33.6 (31.0-37.0) g/dL RDW 15.1 (11.5-15.5) % Plt Count 161 (150-450) k/uL MPV 9.1 Neutrophils % 76 % Lymphocytes % 16 % Monocytes % 5 % Eosinophils % 1 % Basophils % 1 % Neutrophils # 8.6 H (1.3-7.7) k/uL Lymphocytes # 1.8 (1.0-4.8) k/uL Monocytes # 0.5 (0-1.0) k/uL Eosinophils # 0.1 (0-0.7) k/uL Basophils # 0.1 (0-0.2) k/uL Hypochromasia Moderate Poikilocytosis Moderate PT 9.7 (9.0-12.0) sec INR 0.9 (<1.2) APTT 22.6 (22.0-30.0) sec Sodium 136 L (137-145) mmol/L Potassium 4.4 (3.5-5.1) mmol/L Chloride 100 (98-107) mmol/L Carbon Dioxide 30 (22-30) mmol/L Anion Gap 6 mmol/L BUN 20 H (7-17) mg/dL Creatinine 0.97 (0.52-1.04) mg/dL Est GFR (CKD-EPI)AfAm 65 (>60 ml/min/1.73 sqM) Est GFR (CKD-EPI)NonAf 57 (>60 ml/min/1.73 sqM) Glucose 117 H (74-99) mg/dL Calcium 9.3 (8.4-10.2) mg/dL Magnesium 2.2 (1.6-2.3) mg/dL Total Bilirubin 0.3 (0.2-1.3) mg/dL AST 25 (14-36) U/L ALT 19 (4-34) U/L Alkaline Phosphatase 109 (38-126) U/L Troponin I (0.000-0.034) ng/mL Total Protein 6.5 (6.3-8.2) g/dL Albumin 3.8 (3.5-5.0) g/dL Urine Color Urine Appearance (Clear) Urine pH (5.0-8.0) Ur Specific [place] (1.001-1.035) Urine Protein (Negative) Urine Glucose (UA) (Negative) Urine Ketones (Negative) Urine Blood (Negative) Urine Nitrite (Negative) Urine Bilirubin (Negative) Urine Urobilinogen (<2.0) mg/dL Ur Leukocyte Esterase (Negative) Urine RBC (0-5) /hpf Urine WBC (0-5) /hpf Ur Squamous Epith Cells (0-4) /hpf 08/14/20 08/14/20 Range/Units 20:55 20:55 WBC (3.8-10.6) k/uL RBC (3.80-5.40) m/uL Hgb (11.4-16.0) gm/dL Hct (34.0-46.0) % MCV (80.0-100.0) fL MCH (25.0-35.0) pg MCHC (31.0-37.0) g/dL RDW (11.5-15.5) % Plt Count (150-450) k/uL MPV Neutrophils % % Lymphocytes % % Monocytes % % Eosinophils % % Basophils % % Neutrophils # (1.3-7.7) k/uL Lymphocytes # (1.0-4.8) k/uL Monocytes # (0-1.0) k/uL Eosinophils # (0-0.7) k/uL Basophils # (0-0.2) k/uL Hypochromasia Poikilocytosis PT (9.0-12.0) sec INR (<1.2) APTT (22.0-30.0) sec Sodium (137-145) mmol/L Potassium (3.5-5.1) mmol/L Chloride (98-107) mmol/L Carbon Dioxide (22-30) mmol/L Anion Gap mmol/L BUN (7-17) mg/dL Creatinine (0.52-1.04) mg/dL Est GFR (CKD-EPI)AfAm (>60 ml/min/1.73 sqM) Est GFR (CKD-EPI)NonAf (>60 ml/min/1.73 sqM) Glucose (74-99) mg/dL Calcium (8.4-10.2) mg/dL Magnesium (1.6-2.3) mg/dL Total Bilirubin (0.2-1.3) mg/dL AST (14-36) U/L ALT (4-34) U/L Alkaline Phosphatase (38-126) U/L Troponin I <0.012 (0.000-0.034) ng/mL Total Protein (6.3-8.2) g/dL Albumin (3.5-5.0) g/dL Urine Color Light Yellow Urine Appearance Clear (Clear) Urine pH 6.0 (5.0-8.0) Ur Specific [place] 1.007 (1.001-1.035) Urine Protein Negative (Negative) Urine Glucose (UA) Negative (Negative) Urine Ketones Negative (Negative) Urine Blood Negative (Negative) Urine Nitrite Negative (Negative) Urine Bilirubin Negative (Negative) Urine Urobilinogen <2.0 (<2.0) mg/dL Ur Leukocyte Esterase Trace H (Negative) Urine RBC 1 (0-5) /hpf Urine WBC 2 (0-5) /hpf Ur Squamous Epith Cells 2 (0-4) /hpf - EKG Data EKG Comments: sinus rhythm with occasional PAC Ventricular rate 79, ID 180, QRS 106, QTC 465 Disposition Clinical Impression: Asymptomatic hypertension Disposition: HOME SELF-CARE Condition: Stable Instructions (If sedation given, give patient instructions): Coronary Artery Disease ([place]), Hypertension (ED) Additional Instructions: Follow-up with the integration technician. Return to emergency department if symptoms wor sen. Is patient prescribed a controlled substance at d/c from ED?: No Referrals: Gaurang Bedoya MD [Primary Care Provider] - 1-2 days Yaw Cortez MD [STAFF PHYSICIAN] - 1-2 days Time of Disposition: 22:06
[2020-08-14 21:04] LABS: Basophils # (A) 0.1 k/uL (0-0.2); Basophils % (A) 1 %; Eosinophils # (A) 0.1 k/uL (0-0.7); Eosinophils % (A) 1 %; HCT 37.7 % (34.0-46.0); HGB 12.7 gm/dL (11.4-16.0); Hypochromasia Moderate; Lymphocytes # (A) 1.8 k/uL (1.0-4.8); Lymphocytes % (A) 16 %; MCH 32.2 pg (25.0-35.0); MCHC 33.6 g/dL (31.0-37.0); MCV 96.1 fL (80.0-100.0); Mean Platelet Volume 9.1; Monocytes # (A) 0.5 k/uL (0-1.0); Monocytes % (A) 5 %; Neutrophils # (A) 8.6 k/uL (1.3-7.7); Neutrophils % (A) 76 %; Platelet Count 161 k/uL (150-450); Poikilocytosis Moderate; RBC 3.92 m/uL (3.80-5.40); RDW 15.1 % (11.5-15.5); WBC 11.3 k/uL (3.8-10.6)
[2020-08-14 21:13] LABS: Albumin 3.8 g/dL (3.5-5.0); Appearance,Urine Clear (Clear); Bilirubin,Urine Negative (Negative); Blood,Urine Negative (Negative); Calcium 9.3 mg/dL (8.4-10.2); Color,Urine Light Yellow; Glucose,Urine (UA) Negative (Negative); Ketones,Urine Negative (Negative); Leukocyte Esterase,Urine Trace (Negative); Magnesium 2.2 mg/dL (1.6-2.3); Nitrite,Urine Negative (Negative); Potassium 4.4 mmol/L (3.5-5.1); Protein,Urine Negative (Negative); RBC,Urine 1 /hpf (0-5); Specific Gravity,Urine 1.007 (1.001-1.035); Squamous Epithelial Cell,Urine 2 /hpf (0-4); Total Bilirubin 0.3 mg/dL (0.2-1.3); Total Protein 6.5 g/dL (6.3-8.2); Urobilinogen,Urine <2.0 mg/dL (<2.0); WBC,Urine 2 /hpf (0-5)
--- NOTE | 2020-08-14 21:13 | XR ---
EXAMINATION TYPE: XR chest 2V DATE OF EXAM: 08/14/2020 COMPARISON: 08/18/2019 HISTORY: Chest pain TECHNIQUE: FINDINGS: Heart is normal. Lungs are clear of infiltrate. There is no heart failure. There are no hil ar masses. There is mild spurring in the lower thoracic spine. IMPRESSION: No active cardiopulmonary disease. No change.
[2020-08-14 21:17] LABS: INR 0.9 (<1.2); Partial Thromboplastin Time 22.6 sec (22.0-30.0); Prothrombin Time 9.7 sec (9.0-12.0)
[2020-08-14 22:16] VITALS: BP 170/88; PULSE 75; RESP 18
[2020-08-14 22:37] VITALS: TEMP 99
== END 2020-08-14 22:30 | disposition home or self-care (01) ==
LOC: EC 19:45
DX: I11.0 Hypertensive heart disease with heart failure (principal); I50.9 Heart failure, unspecified; M19.90 Unspecified osteoarthritis, unspecified site; J44.9 Chronic obstructive pulmonary disease, unspecified; H91.90 Unspecified hearing loss, unspecified ear; I25.2 Old myocardial infarction; Z79.899 Other long term (current) drug therapy; Z79.02 Long term (current) use of antithrombotics/antiplatelets; Z79.52 Long term (current) use of systemic steroids; Z79.82 Long term (current) use of aspirin; Z91.013 Allergy to seafood; Z85.3 Personal history of malignant neoplasm of breast; Z96.653 Presence of artificial knee joint, bilateral; Z95.5 Presence of coronary angioplasty implant and graft; Z96.641 Presence of right artificial hip joint
CPT/HCPCS: 36415; 71046; 80053; 81001; 83735; 84484; 85025; 85610; 85730; 93005; 99283

== ENCOUNTER → 2021-01-14 | Outpatient (CLI) | payer MEDICARE | END | disposition home or self-care (01) | CPT/HCPCS: 36415; 80051; 82565; 84520; 85027 ==

== ENCOUNTER 2021-01-17 09:03 | Day surgery (SDC) | payer MEDICARE ==
[2021-01-16 12:27] VITALS: BMI 33.3
[~2021-01-17 09:03] MED LIST changes: -ACETAMINOPHEN TAB 500 MG TAB PO ONE; +ALPRAZolam 0.25 MG TAB PO PRN; +ALPRAZolam 0.5 MG TAB PO PRN; +ASPIRIN 325 MG TAB PO ONE; +ATORVASTATIN 80 MG TAB PO ONE; -DEXAMETHASONE SOD PHOSPHATE 10 MG/ML 1 ML VIAL IV ONE; +HEPARIN SODIUM,PORCINE 10,000 UNIT in SODIUM CHLORIDE 0.9% 1,000 ML IRRIGATION PRN; +HEPARIN SODIUM,PORCINE 2,500 UNIT in SODIUM CHLORIDE 0.9% 250 ML IRRIGATION PRN; -HEPARIN SODIUM,PORCINE 5,000 UNIT/ML 1 ML VIAL SQ ONE; -HYDROmorphone 0.5 MG/0.5 ML SYRINGE IVP PRN; -LACTATED RINGERS 1,000 ML IV SCH; -MIDAZOLAM 2 MG/2 ML VIAL IV PRN; +NITROGLYCERIN SL TABS 0.4 MG TAB SUBLINGUAL PRN; -ONDANSETRON 4 MG/2 ML VIAL IVP ONE; +SODIUM CHLORIDE 0.9% 1,000 ML in EMPTY BAG 1 BAG IV ONE
[2021-01-17] MEDS ORDERED: SODIUM CHLORIDE 0.9% 1,000 ML IV ONE (09:45)
[2021-01-17 09:50] VITALS: RESP 16; TEMP 98.8
[2021-01-17] MEDS ORDERED: fentaNYL (PF) 50 MCG/ML 2 ML AMP ONE (09:55)
[2021-01-17] MEDS ORDERED: LIDOCAINE 1% INJ 10MG/ML (20 ML MDV) ONE (09:55)
[2021-01-17] MEDS ORDERED: MIDAZOLAM 2 MG/2 ML VIAL IV ONE (10:19)
[2021-01-17] MEDS ORDERED: fentaNYL (PF) 50 MCG/ML 2 ML AMP IV ONE (10:19)
[2021-01-17] MEDS ORDERED: LIDOCAINE 1% INJ 10MG/ML (20 ML MDV) SQ ONE (10:20)
[2021-01-17] MEDS ORDERED: RX INFO: IV CONTRAST WAS GIVEN 1 EACH MISC MISCELLANE PRN (10:44)
[2021-01-17] MEDS ORDERED: SODIUM CHLORIDE 0.9% 1,000 ML IV SCH (10:45)
[2021-01-17] MEDS ORDERED: IOPAMIDOL-370 125ML BTL INJ ONE (10:50)
[2021-01-17 16:04] VITALS: BP 122/58; PULSE 63
--- NOTE | 2021-01-23 09:20 | CC ---
CARDIAC CATHETERIZATION REPORT INDICATION: Exertional shortness of breath and cardiomyopathy in a patient with known coronary artery disease and status post prior angioplasty of circumflex coronary artery. PROCEDURE NOTE: After obtaining informed consent, left heart catheterization and coronary angiogram were performed via the right femoral artery using standard Marianne catheters. Patient tolerated the procedure well without any obvious immediate complications. The patient received moderate conscious sedation. Total sedation time was 15 minutes. FINDINGS: HEMODYNAMICS: Left ventricular end-diastolic pressure is 18 mm. There is no significant gradient across the aortic valve. LEFT VENTRICULOGRAM: Not performed. ANGIOGRAPHIC DATA: LEFT MAIN CORONARY ARTERY: Left main coronary artery is a normal-sized vessel and is free of stenosis. Divides into left anterior descending coronary artery and circumflex coronary artery. LEFT ANTERIOR DESCENDING CORONARY ARTERY: Proximal LAD shows mild nonobstructive disease. CIRCUMFLEX CORONARY ARTERY: Circumflex coronary artery shows a 30% to 40% stenosis. RIGHT CORONARY ARTERY: Right coronary artery shows mild nonobstructive disease. CONCLUSION: Mild nonobstructive coronary artery disease. PLAN: I reviewed angiographic data with the patient and advised her on medical therapy. MMODL / IJN: [id number] /
== END 2021-01-17 17:27 | disposition home or self-care (01) ==
LOC: CATHCVL 09:03
PROVIDERS: ATTEND Internal Medicine Cardiovascular Disease
DX: I25.110 Atherosclerotic heart disease of native coronary artery with unstable angina pectoris (principal); I10 Essential (primary) hypertension; E78.5 Hyperlipidemia, unspecified; Z82.49 Family history of ischemic heart disease and other diseases of the circulatory system; Z95.5 Presence of coronary angioplasty implant and graft; I25.5 Ischemic cardiomyopathy; J44.9 Chronic obstructive pulmonary disease, unspecified; E07.9 Disorder of thyroid, unspecified; Z85.3 Personal history of malignant neoplasm of breast; Z87.891 Personal history of nicotine dependence; Z79.1 Long term (current) use of non-steroidal anti-inflammatories (NSAID); Z79.02 Long term (current) use of antithrombotics/antiplatelets; Z79.82 Long term (current) use of aspirin; Z79.52 Long term (current) use of systemic steroids; Z79.899 Other long term (current) drug therapy
CPT/HCPCS: 93458; C1769 ×2; C1894; J2250; J2001; J3010; Q9967

== ENCOUNTER → 2022-06-24 | Outpatient (CLI) | payer OTHER ==
--- NOTE | 2022-06-25 13:10 | MM ---
Reason for Exam: Screening (asymptomatic). Last mammogram was performed 4 year(s) and 0 month(s) ago. Patient History: Menarche at age 17. First Full-Term at age 24. Postmenopausal. Breast cancer, age 66. 2006, Mastectomy on the Right side. 2007, Implant on the right side. Sister had breast cancer, age 50. Prior Study Comparison: 12/29/2013 Screening Mammogram, [facility]. 01/02/2015 Screening Mammogram, [facility]. 06/29/2018 Left Diagnostic Mammogram, [facility]. Tissue Density: There are scattered fibroglandular densities. Findings: Analyzed By CAD. Pattern is stable. No significant interval change is evident. No suspicious groups of microcalcifications, spiculated or lobular masses, architectural distortion or other secondary signs of malignancy are mammographically apparent. Overall Assessment: Benign, BI-RAD 2 Management: Screening Mammogram of the left breast in 1 year. A negative mammogram report should not preclude additional follow up of suspicious palpable abnormalities. Patient should continue monthly self breast exam. A clinical breast exam by your physician is recommended on an annual basis and results should be correlated with mammographic findings. Electronically signed and approved by: Zac Guzmán D.O. Radiologis
--- NOTE | 2022-06-26 15:08 | BD ---
EXAMINATION TYPE: Axial Bone Density DATE OF EXAM: 06/24/2022 COMPARISON: 06/29/2018 CLINICAL HISTORY: 81 years old Female. ICD-10 CODE: Z78.0 Postmenopaus Height: 62 Weight: 203 FRAX RISK QUESTIONS: Family History (Parent hip fracture): NO History of Fracture in Adulthood: NO Secondary Osteoporosis: NO Rheumatoid Arthritis: NO RISK FACTORS HISTORY OF: Surgery to Hip(right): YES When: 2012 Family History of Osteoporosis: NO Active: YES Diet low in dairy products/other sources of calcium: NO Postmenopausal woman: YES Lost more than 2 inches in height since high school: YES Frequent falls: NO Poor Health: NO Hyperparathyroidism: NO Adrenal Insufficiency: NO MEDICATIONS: Additional Medications: YES CELEXA, FUROSEMIDE, POTASSIUM, ZANTAC, VIT D, CALCIUM, MULTI, PRILOSEC, VICODEN, IBUPROFEN, METOPROL OL TARTRATE, BABY ASPIRIN, LASIX Additional History: YES BREAST CANCER 2004 RIGHT EXAM MEASUREMENTS: Bone mineral densitometry was performed using the [employer] System. Bone mineral density as measured about the Lumbar spine is: ----- L1-L4(G/cm2): 1.375 T Score Values are as follows: ----- L1: 0.8 ----- L2: 1.3 ----- L3: 1.8 ----- L4: 2.7 ----- L1-L4: 1.6 Bone mineral density has: Increased 4.3% since study of: 06/29/2018 Bone mineral density about the L hip (g/cm2): 0.840 T Score values are as follows: -----L Neck: -1.4 -----L Total: -1.3 Bone mineral density has: Increased 2.3% since study of: 06/29/2018 FRAX%s: The graph provided illustrates a 12.0% chance for a major osteoporotic fx and a 2.6% chance f or the hips probability for fx in 10 years time. IMPRESSION: Osteopenia (T Score between -2.5 and -1). There is slightly increased risk of fracture and the patient may be considered for treatment. Re-Screen 2-5 years. NOTE: T-SCORE=SD OF THE YOUNG ADULT MEAN.
== END | disposition home or self-care (01) ==
LOC: RADMAMWWP 14:55
PROVIDERS: ATTEND Family Medicine
DX: Z12.31 Encounter for screening mammogram for malignant neoplasm of breast (principal); M85.89 Other specified disorders of bone density and structure, multiple sites; Z85.3 Personal history of malignant neoplasm of breast; Z78.0 Asymptomatic menopausal state; Z90.11 Acquired absence of right breast and nipple; Z80.3 Family history of malignant neoplasm of breast; Z98.82 Breast implant status
CPT/HCPCS: 77067; 77080

== ENCOUNTER → 2023-07-21 | Outpatient (CLI) | payer MEDICARE ==
--- NOTE | 2023-07-21 17:59 | XR ---
EXAMINATION TYPE: XR ankle complete RT DATE OF EXAM: 07/21/2023 COMPARISON: NONE HISTORY: 82-year-old female medial sided right ankle pain for a couple weeks. M25.571PAIN IN RIGHT A NKLE AND JOINTS OF RIGHT TECHNIQUE: 3 views FINDINGS: Mild tibiotalar joint degenerative change. Small density below the medial malleolus suggest ing sequela of old injury. Prominent anterior soft tissue swelling. There is some amorphous calcifica tion suggested anteriorly at the right ankle joint/soft tissues. Some subtle subchondral bony irregul arity along the mid medial talar dome measuring 4 mm wide. Tyoek-[id number]-lvxjjacn sized plantar heel spur. Possible underlying pes planus with dorsal midfoot degenerative spurring. No acute fracture, subluxa tion, dislocation. IMPRESSION: 1. Circumferential soft tissue swelling. Small ossific densities below the medial malleolus suggests sequela of remote injuries. 2. There is at least mild underlying tibiotalar joint OA. Suspect a small osteochondral lesion measur ing 4 mm wide at the medial talar dome. 3. The anterior soft tissue swelling shows some vague calcifications. Consider CPPD or subclinical go ut as differential possibilities. 4. Possible underlying pes planus. There is dorsal midfoot degenerative spurring and a plantar heel s pur as well.
== END | disposition home or self-care (01) ==
LOC: LABWHC1 14:12
PROVIDERS: ATTEND Family Medicine
DX: M77.31 Calcaneal spur, right foot (principal)
CPT/HCPCS: 36415; 84550; 85652

== ENCOUNTER → 2024-01-11 | Outpatient (CLI) | payer MEDICARE ==
[2024-01-11 15:24] LABS: ALT 23 U/L (8-44); AST 26 U/L (13-35); Chol/HDL Ratio 2.99 Ratio; LDL Cholesterol,Calculated 76.1 mg/dL (0.0-131.0)
== END | disposition home or self-care (01) ==
LOC: LABWHC1 08:10
PROVIDERS: ATTEND Internal Medicine Cardiovascular Disease
DX: E78.2 Mixed hyperlipidemia (principal)
CPT/HCPCS: 36415; 80061; 84450; 84460

== ENCOUNTER → 2024-02-18 | Outpatient (CLI) | payer MEDICARE ==
--- NOTE | 2024-03-09 14:00 | MR ---
Site ID synapse default Patient Lisa Leavitt J ID [id number] Age/Gender: 83Y, F Order # N/A Procedure MR brain & lumbar spine wo/w con Date 02/18/2024 5:15:50 PM INDICATION: Patient age: Female; 83 year old; Reason for study: Amnesia, visual disturbance, breast cancer, low back pain COMPARISON: None. TECHNIQUE: Multi planar, multi sequence imaging was performed through the brain. The patient was then given 9 cc of Gadavist intravenously and multi planar, T1 fat-saturation images were obtained. FINDINGS: The spence-white junctions, ventricular system, basal cisterns appear unremarkable. Diffusion-weighted imaging shows no evidence of restricted diffusion to suggest acute/subacute infarct. Intracranial art erial flow voids are maintained. Midline structures show no abnormality. Confluent and patchy subcort ical and periventricular T2/FLAIR hyperintense regions. Additional regions within the yony. Relativel y symmetric bilaterally. No corresponding enhancement. The susceptibility weighted images a few scatt ered punctate foci of susceptibility artifact in the right parietal, left frontal, left thalamus, lef t yony, and left cerebellar hemisphere. Tiny remote lacunar infarct within the right insula. Small pr ominent perivascular space within the left basal ganglia. After administration of gadolinium, no abno rmal enhancement is seen. Age-appropriate cerebral parenchymal volume. The bone marrow signal is within normal limits. Bilateral aphakia. Mild mucosal thickening of the lef t maxillary sinus. The remaining paranasal sinuses are clear. IMPRESSION: 1. No evidence of intracranial mass, acute/subacute infarct, or abnormal enhancement. No evidence of metastatic disease. 2. Nonspecific white matter changes, likely related to small vessel ischemic disease. LUMBAR SPINE: INDICATION: Patient age: Female; 83 year old; Reason for study: Amnesia, visual disturbance, breast cancer, low back pain COMPARISON: No priors. TECHNIQUE: Multi planar, multi sequence imaging was performed of the lumbar spine before and after c ontrast administration. The patient was given 9 cc of Gadavist intravenously and postcontrast imagin g was performed utilizing T1 weighted fat saturation in both the sagittal and axial planes. FINDINGS: Alignment: The lumbar vertebral bodies have preserved heights. Grade 1 anterolisthesis of L4 on L5 wi thout pars defects. Cord: The conus medullaris and the distal spinal cord appear unremarkable with regards to their signa l intensity and morphology. Bones/Discs: Few T1/T2 hyperintense lesions within the vertebral bodies are largest within the anteri or aspect of the L4 vertebral body measuring up to 1.2 cm. No corresponding enhancement. This demonst rates fat suppression and are consistent with focal fatty marrow. There is a 1 cm lesion within the T 11 vertebral body and a partially visualized 0.7 cm lesion within the T10 vertebral body. These demon strate low T1 signal with high T2 signal and demonstrate enhancement (series 1071, image 21). Multile dominic degenerative disc disease is noted. Post surgical changes from right total hip arthroplasty with susceptibility artifact. T12-L1: No significant disc pathology. Spinal canal is patent. The neural foramen are patent. L1-L2: No significant disc pathology. Spinal canal is patent. The neural foramen are patent. L2-L3: Broad-based disc bulge with bilateral facet arthropathy. Additionally there is a right facet j oint synovial cyst identified measuring 1.0 x 0.6 cm (series 1301, image 18). This causes mass effect upon the central canal. Resultant mild to moderate central canal stenosis. Mild bilateral neural for aminal stenosis with right greater the left. L3-L4: Central disc extrusion with cranial extension approximately 7 mm on the posterior cortex of th e L3 vertebral body (series 1001, image 8). Results in moderate central canal stenosis. No significan t neural foraminal stenosis. L4-L5: Grade 1 anterolisthesis with uncovering of the disc. Broad-based disc bulge. Mildly enlarged f acets with significant ligamentum flavum buckling contributing to moderate central canal stenosis. Mi ld bilateral neural foraminal stenosis. L5-S1: Minimal broad-based disc bulge. Ligamentum flavum bilateral facet arthropathy contribute to mi ld to moderate central canal stenosis. Minimal left neural foraminal narrowing. The right neural fora men is patent. Other findings: Bilateral T2 hyperintense nonenhancing renal cysts with largest in the right kidney measuring about 1.3 cm. No visualized lymphadenopathy. IMPRESSION: 1. There are 2 enhancing osseous lesions within the T10 and T11 vertebral bodies concerning for metas tasis. Consider further evaluation with nuclear medicine bone scan. 2. Moderate multilevel disc degeneration with associated osteoarthritic changes as described above. Moderate central canal stenosis at L4-L5. L3-L4 disc extrusion with moderate central canal stenosis. Right facet joint synovial cyst resulting in [id number]-[id number] central canal stenosis. 3. Grade 1 anterolisthesis of L4 on L5.
== END | disposition home or self-care (01) ==
LOC: RADMRIMAIN 18:15
PROVIDERS: ATTEND Psychiatry & Neurology Neurology
DX: M47.816 Spondylosis without myelopathy or radiculopathy, lumbar region (principal); R41.3 Other amnesia; R26.9 Unspecified abnormalities of gait and mobility; Z85.3 Personal history of malignant neoplasm of breast; M48.061 Spinal stenosis, lumbar region without neurogenic claudication; M43.16 Spondylolisthesis, lumbar region; M51.36 Other intervertebral disc degeneration, lumbar region
CPT/HCPCS: 70553; 72158; A9585

== ENCOUNTER → 2024-03-27 | Outpatient (CLI) | payer MEDICARE ==
--- NOTE | 2024-03-27 20:17 | NM ---
EXAMINATION TYPE: NM bone scan whole body DATE OF EXAM: 03/27/2024 2:18 PM CLINICAL INDICATION:Female, 83 years old with history of R93.89 Abnormal MRI COMPARISON: None TECHNIQUE: Intravenous administration 25.1 mCi Tc 99m MDP followed by multiple scintigraphic images o f the appendicular and axial skeleton. Images acquired 5 hours post injection. FINDINGS: No abnormal uptake is identified within the appendicular or axial skeleton to suggest metastatic dise ase. Single focus of uptake in the left T9 transverse process which does not correlate with MRI find ings. There is increased uptake within the bilateral shoulder, sternoclavicular, and sacroiliac joints con sistent with degenerative changes. No other photopenic areas or areas of increased activity are ident ified. Physiologic radiotracer activity is demonstrated in the kidneys and bladder. IMPRESSION: There is a focus of uptake near the left T9 transverse process. No finding to correlate with MRI lumb ar spine. There is no history of malignancies could represent benign vertebral body atypical hemangio mas. Consider short-term follow-up MRI thoracic spine with IV contrast in 3 months. [facility], , 03/27/2024 8:15 PM
== END | disposition home or self-care (01) ==
LOC: RADNMMAIN 07:17
PROVIDERS: ATTEND Family Medicine
DX: R93.89 Abnormal findings on diagnostic imaging of other specified body structures
CPT/HCPCS: 78306

== ENCOUNTER 2024-05-22 22:45 | Emergency (ER) | payer MEDICARE ==
[2024-05-22 22:53] VITALS: BP 138/69; PULSE 89; RESP 18; TEMP 97.7
--- NOTE | 2024-05-23 | ED ---
Fall HPI - General Chief Complaint: Fall Stated Complaint: Fall, Head Injury, R Knee Pain, L Shoulder Pain Time Seen by Provider: 05/22/24 23:19 Source: patient Mode of arrival: ambulatory - History of Present Illness Initial Comments: This patient is an 83-year-old woman who states that she was attempting to go up stairs in her home, tripped and fell forward on the stairs. She landed on her left shoulder, struck her right knee, and also struck her chin. The patient mainly is complaining of pain to the left shoulder and the anterior of the right knee. Patient also did note abrasion and is unsure of the date of her last tetanus shot. She denies loss consciousness. No headache or neck pain. No chest or back/abdomen pain. MD Complaint: fall Onset/Timin -: hour(s) Fall From: down stairs (#) When Fall Occurred: just prior to arrival Fall Witnessed: no Place Fall Occurred: home Loss of Consciousness: none Prolonged Down Time?: no Symptoms Prior to Fall: none Location - Extremities: Left: Shoulder, Right: Knee Severity: moderate Quality: aching Context: tripped/slipped Associated Symptoms: denies - Related Data Home Medications Medication Instructions Recorded Confirmed Aspirin [Adult Low Dose Aspirin EC] 81 mg PO DAILY 04/11/17 01/17/21 Cholecalciferol [Vitamin D3 (10 400 unit PO DAILY 04/11/17 01/17/21 Mcg = 400 Iu)] Clopidogrel Bisulfate [Plavix] 75 mg PO DAILY 04/11/17 01/17/21 Multivitamins, Thera [Multivitamin 1 tab PO DAILY 04/11/17 01/17/21 (formulary)] Potassium Chloride [Klor-Con 10 ER] 10 meq PO DAILY PRN MDD krystal lasix 04/11/17 01/17/21 Citalopram Hydrobromide [CeleXA] 10 mg PO DAILY 09/12/18 01/17/21 Ipratropium-Albuterol Nebulize 3 ml INHALATION DAILY PRN 09/12/18 01/16/21 [Duoneb 0.5 mg-3 mg/3 ml Soln] methIMAzole [Tapazole] 10 mg PO DAILY 09/12/18 01/17/21 Atorvastatin [Lipitor] 10 mg PO HS 02/06/20 01/17/21 Docusate [Colace] 100 mg PO DIRECTED PRN 01/16/21 01/17/21 Furosemide [Lasix] 20 mg PO DAILY PRN 01/16/21 01/17/21 Losartan Potassium [Cozaar] 100 mg PO DAILY 01/16/21 01/16/21 Metoprolol Tartrate [Lopressor] 100 mg PO BID 01/16/21 01/17/21 Omeprazole [PriLOSEC] 20 mg PO AC-BRKFST 01/16/21 01/17/21 Vit C/E/Zn/Coppr/Lutein/Zeaxan 1 each PO BID 01/16/21 01/17/21 [Preservision Areds 2 Softgel] amLODIPine [Norvasc] 10 mg PO DAILY 01/16/21 01/17/21 traMADol HCL [Ultram] 50 - 100 mg PO QID PRN 01/16/21 01/17/21 Previous Rx's Medication Instructions Recorded HYDROcodone/APAP 7.5-325MG [Ewing 1 tab PO Q4H PRN 3 Days #18 tab 05/23/24 7.5-325] Allergies Allergy/AdvReac Type Severity Reaction Status Date / Time shellfish derived [Shellfish] Allergy Nausea & Verified 05/22/24 22:53 Vomiting Review of Systems ROS Statement: Those systems with pertinent positive or pertinent negative responses have been documented in the HPI. ROS Other: All systems not noted in ROS Statement are negative. Constitutional: Denies: fever, chills, weakness Eyes: Denies: vision change Respiratory: Denies: cough, dyspnea Cardiovascular: Denies: chest pain, syncope Gastrointestinal: Denies: abdominal pain, nausea, vomiting Musculoskeletal: Reports: as per HPI, arthralgia. Denies: back pain Skin: Denies: rash Neurological: Denies: headache, weakness, numbness, paresthesias, confusion Past Medical History Past Medical History: Cancer, Heart Failure, COPD, Hearing Disorder / Deafness, Myocardial Infarction (HI), Osteoarthritis (OA), Thyroid Disorder Additional Past Medical History / Comment(s): breast cancer, takes prednisone for COPD, has been on for a couple months per spouse Last Myocardial Infarction Date:: 02/2016 History of Any Multi-Drug Resistant Organisms: None Reported Past Surgical History: Breast Surgery, Heart Catheterization With Stent, Joint Replacement Additional Past Surgical History / Comment(s): kim knee replacement, right hip replacement, 2 heart stents, rt breast mastectomy, eyelid surgery, kim cataracts, recent EGD Past Anesthesia/Blood Transfusion Reactions: Previous Problems w/ Anesthesia Additional Past Anesthesia/Blood Transfusion Reaction / Comment(s): comes out real shaky Date of Last Stent Placement:: 02/13/16 Past Psychological History: No Psychological Hx Reported Smoking Status: Never smoker Past Alcohol Use History: Occasional - Past Family History Mother Additional Family Medical History / Comment(s): from natural causes per patient. Father Family Medical History: Cancer Sister(s) Family Medical History: Cancer General Exam Limitations: no limitations General appearance: alert, in no apparent distress Head exam: Present: atraumatic, normocephalic Eye exam: Present: normal appearance. Absent: scleral icterus, conjunctival injection ENT exam: Present: normal oropharynx Neck exam: Present: normal inspection, full ROM. Absent: tenderness Respiratory exam: Present: normal lung sounds bilaterally. Absent: respiratory distress, wheezes, rales, rhonchi, stridor, chest wall tenderness, accessory muscle use Cardiovascular Exam: Present: regular rate, normal rhythm, normal heart sounds. Absent: systolic murmur, diastolic murmur GI/Abdominal exam: Present: soft. Absent: tenderness, guarding, rebound Extremities exam: Present: normal inspection, normal capillary refill Left General: Present: normal inspection Shoulder Exam: Present: tenderness, swelling. Absent: full ROM, abrasion, laceration, ecchymosis, deformity, crepitus, dislocation, erythema, tenderness over AC joint Upper Arm exam: Present: tenderness. Absent: full ROM, abrasion, laceration, ecchymosis, crepidus, dislocation, erythema Elbow exam: Present: normal inspection, full ROM. Absent: tenderness, swelling, laceration Forearm Wrist exam: Present: normal inspection, full ROM. Absent: tenderness, swelling Hand Wrist exam: Present: normal inspection, full ROM. Absent: tenderness, swelling Neuro motor exam: Present: wrist extension intact, thumb opposition intact, thumb IP flexion intact, thumb adduction intact Neurosensory exam: Present: radial nerve intact, ulnar nerve intact, median nerve intact Vascular: Present: normal capillary refill. Absent: vascular compromise Back exam: Present: normal inspection. Absent: paraspinal tenderness, vertebral tenderness Neurological exam: Present: alert, oriented X3. Absent: motor sensory deficit Skin exam: Present: warm, dry, intact, normal color. Absent: rash Course Vital Signs 05/22/24 22:50 Temperature 97.7 F Pulse Rate 89 Respiratory 18 Rate Blood Pressure 138/69 O2 Sat by Pulse 98 Oximetry Medical Decision Making - Medical Decision Making The patient had x-ray of the knee that I interpreted as negative for acute fracture dislocation or injury to the orthopedic hardware. The patient had x-ray of the shoulder that I interpreted as showing humeral neck fracture. Was pt. sent in by a medical professional or institution (, PA, DEMAND INSPECTOR, urgent care, hospital, or correction...) When possible be specific @ -[No] Did you speak to anyone other than the patient for history (EMS, parent, family, police, friend...)? What history was obtained from this source @ -[No] Did you review nursing and triage notes (agree or disagree)? Why? @ -[I reviewed and agree with nursing and triage notes] Were old charts reviewed (outside hosp., previous admission, EMS record, old EKG, old radiological studies, urgent care reports/EKG's, correction records)? Report findings @ -[No old charts were reviewed] Differential Diagnosis (chest pain, altered mental status, abdominal pain women, abdominal pain men, vaginal bleeding, weakness, fever, dyspnea, syncope, headache, dizziness, GI bleed, back pain, seizure, CVA, palpatations, mental health, musculoskeletal)? @ -[Differential Musculoskeletal Muscular strain, contusion, ligament sprain, fracture, arthritis, septic arthritis, bursitis, cellulitis, muscle spasm, nerve compression, DVT, arterial occlusion, herpes zoster, electrolyte abnormality, tumor.... This is not meant to be in all inclusive list EKG interpreted by me (3pts min.). @ -[As above] X-rays interpreted by me (1pt min.). @ -[I interpreted as above CT interpreted by me (1pt min.). @ -[None done] U/S interpreted by me (1pt. min.). @ -[None done] What testing was considered but not performed or refused? (CT, X-rays, U/S, labs)? Why? @ -[None] What meds were considered but not given or refused? Why? @ -[None] Did you discuss the management of the patient with other professionals (professionals i.e. DrPierce, PA, DEMAND INSPECTOR, lab, RT, psych nurse, dialysis social worker, comptometer operator, teacher, landing signal officer, spring encaser)? Give summary @ -[No] Was smoking cessation discussed for >3mins.? @ -[No] Was critical care preformed (if so, how long)? @ -[No] Were there social determinants of health that impacted care today? How? (Homelessness, low income, unemployed, alcoholism, drug addiction, transportation, low edu. Level, literacy, decrease access to med. care, group home, rehab)? @ -[No] Was there de-escalation of care discussed even if they declined (Discuss DNR or withdrawal of care, Hospice)? DNR status @ -[No] What co-morbidities impacted this encounter? (DM, HTN, Smoking, COPD, CAD, Cancer, CVA, ARF, Chemo, Hep., AIDS, mental health diagnosis, sleep apnea, morbid obesity)? @ -[None] Was patient admitted / discharged? Hospital course, mention meds given and route, prescriptions, significant lab abnormalities, going to OR and other pertinent info. @ -[Patient is an 83-year-old woman here after having fall. The x-ray does appear to show humeral neck fracture. The patient at this point stable for outpatient follow-up with orthopedics. Discussed appropriate further care as well as return parameters. Undiagnosed new problem with uncertain prognosis? @ -[No] Drug Therapy requiring intensive monitoring for toxicity (Heparin, Nitro, Insulin, Cardizem)? @ -[No] Were any procedures done? @ -[No] Diagnosis/symptom? @ -[Acute humeral neck fracture Acute, or Chronic, or Acute on Chronic? @ -[Acute Uncomplicated (without systemic symptoms) or Complicated (systemic symptoms)? @ -[Uncomplicated Side effects of treatment? @ -[No] Exacerbation, Progression, or Severe Exacerbation? @ -[No] Poses a threat to life or bodily function? How? (Chest pain, USA, HI, pneumonia, PE, COPD, DKA, ARF, appy, cholecystitis, CVA, Diverticulitis, Homicidal, Suicidal, threat to staff... and all critical care pts) @ -[No] Disposition Clinical Impression: Fall, Humerus fracture Disposition: HOME SELF-CARE Condition: Good Prescriptions: HYDROcodone/APAP 7.5-325MG [Ewing 7.5-325] 1 tab PO Q4H PRN 3 Days #18 tab PRN Reason: Pain Is patient prescribed a controlled substance at d/c from ED?: Yes When asked, does pt state using other controlled substances?: No If prescribed controlled substance>3 days was MAPS reviewed?: Prescribed <3 Days If opioid is for acute pain is fill amount 7 days or less?: Yes If Rx opioid, was Start Talking consent form obtained?: Yes Referrals: Gaurang Bedoya MD [Primary Care Provider] - 1-2 days Dom Cuellar DO [Doctor of Osteopathic Medicine] - 1-2 days
--- NOTE | 2024-05-23 00:27 | XR ---
EXAM: XR Left Shoulder Complete, 2 or More Views CLINICAL HISTORY: ITS.REASON XR Reason: pain TECHNIQUE: Two or more views of the left shoulder. COMPARISON: No relevant prior studies available. FINDINGS: Bones/joints: Diffuse osseous demineralization. Degenerative changes of the acromioclavicular joint. No acute fracture or subluxation. Soft tissues: Unremarkable. IMPRESSION: No acute fracture or subluxation.
[2024-05-23] MEDS: DIPH,PERTUS(ACELL)TETVAC-LF 0.5 ML VIAL IM ONE (00:53)
[2024-05-23] MEDS: MORPHINE SULFATE 4 MG/ML SYRINGE IM STA ×2 (00:54→02:19)
--- NOTE | 2024-05-23 01:04 | XR ---
EXAM: XR Right Knee, 3 Views CLINICAL HISTORY: ITS.REASON XR Reason: pain TECHNIQUE: Three views of the right knee. COMPARISON: No relevant prior studies available. FINDINGS: Bones/joints: RIGHT knee arthroplasty. No periprosthetic fracture, loosening, or dislocation. Diffuse osseous demineralization. Patellar resurfacing. Soft tissues: Unremarkable. IMPRESSION: RIGHT knee arthroplasty. No periprosthetic fracture, loosening, or dislocation.
== END 2024-05-23 02:23 | disposition home or self-care (01) ==
LOC: EC 22:45
DX: S42.214A Unspecified nondisplaced fracture of surgical neck of right humerus, initial encounter for closed fracture (principal); S09.90XA Unspecified injury of head, initial encounter; M25.561 Pain in right knee; Z91.013 Allergy to seafood; Z23 Encounter for immunization; W10.9XXA Fall (on) (from) unspecified stairs and steps, initial encounter
CPT/HCPCS: 73030; 73562; 90715; 99284; 96372 ×2; 90471; J2270

== ENCOUNTER → 2024-11-10 | Outpatient (CLI) | payer MEDICARE ==
--- NOTE | 2024-11-10 12:27 | FL ---
EXAMINATION TYPE: FL barium swallow DATE OF EXAM: 11/10/2024 COMPARISON: NONE CLINICAL INDICATION: Female, 84 years old with history of R10.13 EPIGASTRIC PAIN, mid abdominal pain for one year after cholecystectomy. Recent improvement last one to 2 weeks after starting reflux medi cation per patient. TECHNIQUE: A double contrast esophagram is performed utilizing air and barium. A total of 33 second s of fluoroscopic time was utilized during procedure and 67 images obtained. TOTAL DAP = 1683.73. FINDINGS: The esophagus shows normal motility and emptying into the stomach. No evidence of fixed hi atal hernia or stricture noted. No intraluminal mass. No significant gastroesophageal reflux was seen during real time performance of this study. IMPRESSION: No significant abnormality is seen to account for patient's symptoms. [facility], , 11/10/2024 12:25 PM
== END | disposition home or self-care (01) ==
LOC: RADFLMAIN 10:43
PROVIDERS: ATTEND Family Medicine
DX: R10.13 Epigastric pain (principal); Z90.49 Acquired absence of other specified parts of digestive tract
CPT/HCPCS: 74220